=== PATIENT | female | born 1980 | race Caucasian/White ===

== ENCOUNTER 2022-04-23 09:36 | Outpatient (CLI) | payer BC, SELFPAY | END 2022-04-23 09:37 | disposition home or self-care (01) | PROVIDERS: PCP Physician Assistant Medical; Visit Provider Physician Assistant Medical | DX: R31.9 Hematuria, unspecified (principal); N39.0 Urinary tract infection, site not specified | CPT/HCPCS: 87086 ==

== ENCOUNTER 2022-08-19 08:29 | Outpatient (CLI) | payer BC, SELFPAY | END 2022-08-19 08:30 | disposition home or self-care (01) | LOC: FRMREF 08:31 | PROVIDERS: PCP Physician Assistant Medical; Visit Provider Physician Assistant Medical | DX: R79.89 Other specified abnormal findings of blood chemistry (principal); E78.5 Hyperlipidemia, unspecified; E78.01 Familial hypercholesterolemia; F41.9 Anxiety disorder, unspecified; K76.0 Fatty (change of) liver, not elsewhere classified; R53.83 Other fatigue | CPT/HCPCS: 80053; 80061; 82306; 84443 ==

== ENCOUNTER 2022-12-08 23:00 | Outpatient (REF) | payer BC, SELFPAY ==
[2022-12-08 23:31] LABS: Hemoglobin* 13.2 gm/dL (12.0-16.0)
== END 2022-12-08 23:01 | disposition home or self-care (01) ==
LOC: NPINS 23:00
PROVIDERS: PCP Physician Assistant Medical; Visit Provider Specialist
DX: Z13.0 Encounter for screening for diseases of the blood and blood-forming organs and certain disorders involving the immune mechanism (principal)
CPT/HCPCS: 85018

== ENCOUNTER 2023-03-15 14:19 | Outpatient (REF) | payer BC, SELFPAY ==
[2023-03-15 15:08] LABS: Albumin* 4.3 g/dL (3.3-5.0); Chloride* 104 mmol/L (96-114); Sodium* 141 mmol/L (135-149)
[2023-03-15 15:09] LABS: Potassium* 4.1 mmol/L (3.6-5.1)
[2023-03-15 15:11] LABS: Alanine Aminotransferase* 19 U/L (4-35); Alkaline Phosphatase* 63 U/L (40-150); Anion Gap 8 mEq/L (7-15); Aspartate Amino Transferase* 28 U/L (12-35); Bilirubin Total* 0.8 mg/dL (0.1-1.5); Blood Urea Nitrogen* 10 mg/dL (5-24); Carbon Dioxide* 29 mmol/L (20-32); Creatinine* 0.6 mg/dL (0.5-1.5); Estimated Glomerular Filt Rate 116 ml/min; Glucose* 92 mg/dL (60-115); Total Protein* 6.9 g/dL (6.0-8.3)
[2023-03-15 15:12] LABS: Calcium* 9.4 mg/dL (8.4-10.6)
[2023-03-15 15:23] LABS: Hemoglobin A1C* 5.1 % (0-5.6)
[2023-03-15 15:29] LABS: Vitamin D 25 Hydroxy* 42 ng/mL (30-80)
== END 2023-03-15 14:20 | disposition home or self-care (01) ==
LOC: NPINS 14:19
PROVIDERS: PCP Physician Assistant Medical
DX: E66.09 Other obesity due to excess calories (principal); Z68.34 Body mass index [BMI] 34.0-34.9, adult
CPT/HCPCS: 80053; 82306; 83036

== ENCOUNTER 2023-11-05 16:31 | Outpatient (CLI) | payer BC, SELFPAY ==
--- NOTE | 2023-11-05 16:45 | CRLHL7_ITS ---
For Patients: As a result of the Century Cures Act, medical imaging exams and procedure reports are released immediately into your electronic medical record. You may view this report before your referring provider. If you have questions, please contact your health care provider. INDICATION: Left lower quadrant abdominal pain. Left groin pain. TECHNIQUE: CT images of the abdomen and pelvis without intravenous contrast. COMPARISON: None. FINDINGS: No concerning opacities in the visualized lungs. No pleural effusion. The heart size is normal. The liver, gallbladder, spleen, and pancreas are unremarkable. The adrenal glands and kidneys are unremarkable. The stomach is moderately distended. No abnormally dilated loops of bowel. The appendix is unremarkable. No pathologically enlarged lymph nodes. The abdominal aorta is normal in caliber. No free fluid or free air. The urinary bladder is mildly distended. Status post hysterectomy. Very small fat containing umbilical hernia. Small foci of emphysema and mild stranding within the subcutaneous soft tissues of the lower left ventral abdominal wall, potentially related to iatrogenic sequela. Breast prostheses. Multilevel lumbar spondylosis. No aggressive osseous lesions. IMPRESSION: No acute abnormality in the abdomen or pelvis. Please note that all CT scans at this facility use dose modulation, iterative reconstruction, and/or weight-based dosing when appropriate to reduce radiation dose to as low as reasonably achievable. Dictated by King Tyler MD @ 11/06/2023 12:53:07 PM (Electronically Signed)
== END 2023-11-05 16:32 | disposition home or self-care (01) ==
LOC: CT 16:31
PROVIDERS: PCP Physician Assistant Medical; Visit Provider Physician Assistant Medical
DX: R10.32 Left lower quadrant pain (principal); M47.896 Other spondylosis, lumbar region
CPT/HCPCS: 74176

== ENCOUNTER 2024-04-05 13:50 | Outpatient (CLI) | payer BC, SELFPAY | END 2024-04-05 13:51 | disposition home or self-care (01) | LOC: RAD 13:51 | PROVIDERS: PCP Physician Assistant Medical; Visit Provider Physician Assistant Medical | DX: R00.2 Palpitations (principal) | CPT/HCPCS: 93306 ==

== ENCOUNTER 2024-11-11 19:42 | Inpatient (IN) | payer BC, SELFPAY ==
--- OUTSIDE RECORDS SUMMARY | 2022-02-04 11:27 | XMS_ITS | Continuity of Care Document ---
Author Organization [facility] Address [address] [address] [place] [address] Phone Care Team Providers Care Breakfast Bar Attendant Name Role Phone Bernie Lynch Unavailable Unavailabl e Allergies, Adverse Reactions, Alerts Substance Reaction Status Criticality PENICILLIN Rash Active No Information Medications Medication Instructions Dosage Effective Dates (start - stop) Status Comments Lexapro 20 mg tablet take 1 tablet by oral route every day 20 MG - Active ESTRADIOL (unknown strength) insert 30 Milliliter by vaginal route 3 times every week Not Available - Active WELLBUTRIN SR (unknown strength) take 1 tablet by oral route 2 times every day Not Available - Active Procedures Procedure Date Offic/outpt E&m Estab Mod-hi 2 Offic/outpt E&m New Mod Sever Routine Serum Collection Advance Directives Directive Yes / No Effective Date File Name No Information Encounters Encounter Description Practice Location Reason(s) For Visit Diagnoses Date Provider Providers Copied on Encounter [facility], [address] [address], [place], [place], [id number], [place] tel:[phone] [facility] No Information Onur Gibbs. [address] [facility], [facility] [address], [place], [place], [address], [place]. tel:[phone] Offic/outpt E&m Estab Mod-hi 2 [facility], [address] [address], [place], [place], [address], [place] tel:[phone] [facility] GI Symptoms or Concerns (chief complaint) SPICER (nonalcoholic steatohepatit is)Insulin resistance Shani Arias. [address] [facility], [facility] [address], [place], [place], [address], [place]. tel:[phone] Referring Provider: Referral Self, USE FOR SELF REFERRALS. [facility], [address] [address], [place], [place], [address], [place] tel:[phone] [facility] Elevated liver function tests Trenary BALTAZAR Gibbs. [address] [facility], [address], [place], [place], [address], [place]. tel:[phone] [facility], [address] [address], [place], [place], [address], [place] tel:[phone] [facility] Elevated liver function tests Onur BALTAZAR Gibbs. [address] [facility], [facility] [address], [place], [place], [address], [place]. tel:[phone] Offic/outpt E&m [facility], [address] [address], [place], [place], [address], [place] tel:[phone] [facility] GI Symptoms or Concerns (chief complaint) Elevated liver function tests Onur BALTAZAR Gibbs. [address] [facility], [facility] [address], [place], [place], [address], [place]. tel:[phone] Referring Provider: Referral Self, USE FOR SELF REFERRALS. [facility], [address] [address], [place], [place], [address], [place] tel:[phone] [facility] No Information Chivo Strauss. [address] [facility], [facility] [address], [place], [place], [address], [place]. tel:[phone] Family History Family Member Type Diagnosis Age At Onset Father Problem Alive and well Son Problem Alive and well Daughter Problem Alive and well Mother Problem Alive and well Mother Problem (finding) Thyroid disorder Immunizations Vaccine Date Status Comments tetanus toxoid, reduced diphtheria toxoid, and acellular pertussis vaccine, adsorbed administered Note: [facility] b i-directional interface ; Source: Other Registry Influenza, seasonal, injecta ble, preservative free administered Note: [facility] bi-direct ional interface ; Source: Other Registry Influenza, seasonal, injecta ble, preservative free administered Note: [facility] bi-direct ional interface ; Source: Other Registry Influenza, seasonal, injecta ble, preservative free administered Note: [facility] bi-direct ional interface ; Source: Other Registry Influenza, seasonal, injecta ble, preservative free administered Note: [facility] bi-direct ional interface ; Source: Other Registry Influenza, seasonal, injecta ble, preservative free administered Note: [facility] bi-direct ional interface ; Source: Other Registry Novel [id number], all formulations administered Note: [facility] bi-direct ional interface ; Source: Other Registry Influenza, seasonal, injecta ble, preservative free administered Note: [facility] bi-direct ional interface ; Source: Other Registry Influenza, seasonal, injectable administe red Note: [facility] bi- directional interface ; Source: Other Registry Influenza, seasonal, injectable administe red Note: [facility] bi- directional interface ; Source: Other Registry Influenza, seasonal, injectable administe red Note: [facility] bi- directional interface ; Source: Other Registry Influenza, seasonal, injectable administe red Note: [facility] bi- directional interface ; Source: Other Registry Engerix-B administered Note: [facility] bi-d irectional interface ; Source: Other Registry Payers Payer name Insurance type Covered constitution party ID Authoriza tion(s) No Information Social History Type Description Quantity Date Captured Comments Sex Female Smoking Status No Information Chief Complaint And Reason For Visit No Information Reason For Referral Reason For Referral No Information Plan Of Treatment Date Type Action Status Referral Ordered: referred to Endocrinology, Diabetes and Metabolism ordered Referral Ordered: referred to [facility] for weight loss ordered History Of Present Illness Encounter Date Complaint History Of Prese nt Illness GI Symptoms or Concerns Geri hall is a 41-year-old patient presents today for follow up of biopsy proven SPICER. Patient was recently seen by Bernie Mohr. Please refer to Mrs. Mohr's recent office note for full details. As you know, patient's medical history is significant for obesity, hyperlipidemia and PCOS with insulin resistance. Patient has chronically abnormal transaminase at least since 2013 attributed to NAFLD. Labs drawn 07/28/21 with revealed Total bilirubin 0.9, AST 185, ALT 257, alkaline phosphatase 80, albumin 5.2 and cholesterol 279. Platelet count was normal at 258. Patient recently underwent percutaneous liver biopsy. Path revealed SPICER with SHADI activity score 5 out of 8, and stage 2 fibrosis. She denies any family history of liver disease or cancer. She does not drink and has never had a history of heavy alcohol use. Patient is asymptomatic from liver standpoints. Denies any symptoms of jaundice, melena, hematochezia, hematemesis or ascites. She has not noticed any recent weight gain but reports she is having difficulty losing weight. She is currently following a ketogenic diet and reports that she has lost about 10 pounds on this. 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 GI Symptoms or Concerns Geri hall is a 41-year-old new patient seen today for concern of elevated liver testing. Patient is seen today as a self-referral. Past medical history is significant for obesity, nonalcoholic fatty liver disease, hyperlipidemia and PCOS with insulin resistance. She is accompanied today by her . Prior to her visit, patient had labs drawn 07/28/21 with [facility] which revealed elevated liver function tests. Total bilirubin 0.9, AST 185, ALT 257, alkaline phosphatase 80, albumin 5.2 and cholesterol 279. Platelet count was normal at 258. Patient reports she was initially told she had liver disease in 2004 when a lesion was found in her liver. She is not sure why she ended up having liver imaging done in the 1st place. She does have a diagnosis of non alcoholic fatty liver disease and saw [facility] in 2013 for assessment. She reports she was told she has an stage 6 cirrhosis. She denies any family history of liver disease or cancer. She does not drink and has never had a history of heavy alcohol use. No history of recreational drugs including IV or intranasal drugs. Patient does use ibuprofen a couple days per week reports when her headaches are bad she will have 800 milligrams of ibuprofen with 1 Excedrin. Denies any symptoms of jaundice, melena, hematochezia, hematemesis or ascites. She has not noticed any recent weight gain but reports she is having difficulty losing weight. She is currently following a ketogenic diet and patient's reports that she has lost about 10 pounds on this. 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 Denies any tobacco use. Functional Status Date Functional Assessmen t No Information Instructions Date Instruction Additional Infor mation No Information Assessments Type Assessment Date No Information Patient Care Teams Name Effective Dates (start - stop) Status Members No Information
--- OUTSIDE RECORDS SUMMARY | 2022-02-04 11:27 | XMS_ITS | Continuity of Care Document ---
Author Organization [facility] Address [address] [address] [place] [address] Phone Care Team Providers Care Direct Marketing Executive Name Role Phone Bernie Lynch Unavailable Unavailabl [...] Diagnoses Date Provider Providers Copied on Encounter [facility], [address] [address], [place], [place], [id number], [place] tel:[phone] [facility] No Information Onur Gibbs. [address] [facility], [place], [place], [address], [place]. tel:[phone] Offic/outpt E&m Estab Mod-hi 2 [facility], [address] [address], [place], [place], [address], [place] tel:[phone] [facility] GI Symptoms or Concerns (chief complaint) SPICER (nonalcoholic steatohepatit is)Insulin resistance Shani Arias. [address], [place], [place], [address], [place]. tel:[phone] Referring Provider: Referral Self, USE FOR SELF REFERRALS. [facility], [address] [address], [place], [place], [address], [place] tel:[phone] [facility] Elevated liver function tests [place] BALTAZAR Gibbs. [address], [address], [place], [place], [address], [place]. tel:[phone] [facility], [address] [address], [place], [place], [address], [place] tel:[phone] [facility] Elevated liver function tests Onur BALTAZAR Gibbs. [address], [place], [place], [address], [place]. tel:[phone] Offic/outpt E&m [facility], [address] [address], [place], [place], [address], [place] tel:[phone] [facility] GI Symptoms or Concerns (chief complaint) Elevated liver function tests Onur BALTAZAR Gibbs. [address], [place], [place], [address], [place]. tel:[phone] Referring Provider: Referral Self, USE FOR SELF REFERRALS. [facility], [address] [address], [place], [place], [address], [place] tel:[phone] [facility] No Information Chivo Strauss. [address], [place], [place], [address], [place]. tel:[phone] Family History Family Member Type Diagnosis Age [...] ional interface ; Source: Other Registry Novel [id number], all formulations administered Note: [facility] bi-direct ional [...] Registry Payers Payer name Insurance type Covered republican ID Authoriza tion(s) No Information Social History Type Description Quantity Date Captured Comments Sex Female Smoking Status No Information Chief Complaint And Reason For Visit No Information Reason For Referral Reason For Referral No Information Plan Of Treatment Date Type Action Status Referral Ordered: referred to Endocrinology, Diabetes and Metabolism ordered Referral Ordered: referred to [facility] for weight loss ordered History Of Present [...] visit, patient had labs drawn 07/28/[address] [facility] which revealed elevated liver function tests. Total [...] non alcoholic fatty liver disease and saw [facility] in 2013 for assessment. 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 Denies any tobacco use. Functional Status Date Functional Assessmen t No Information Instructions Date Instruction Additional Infor mation No Information Assessments Type Assessment Date No Information Patient Care Teams Name Effective Dates (start - stop) Status Members No Information
--- OUTSIDE RECORDS SUMMARY | 2024-11-11 19:45 | XMS_ITS | Clinical Summary ---
Author Organization [facility] Address [address] [address] Phone Care Team Providers Care Test Designer Name Role Phone Choice, No Pcp-Patient Primary Care Provider Chrissie vailable Allergies Active Allergy Reactions Criticality Noted Date Comments Penicillin G RASH Medium 08/08/2021 Medications escitalopram (LEXAPRO) 20 MG tablet Take 20 mg by mouth every 24 hours. 7 Active estradiol (Estrace) 1 MG tablet 4 Active semaglutide-weig ht management (Wegovy) 1.7 MG/0.75ML Solution Auto-injectorInd ications:Class 1 obesity due to excess calories with serious comorbidity and body mass index (BMI) of 34.0 to 34.9 in adult Inject 1.7 mg under the skin one time a week. After removal of the pen cap, the needle will be hidden inside the needle cover. To begin injection, press the needle cover firmly against the skin. Once injected, continue to press the device against the skin until the yellow bar has stopped moving. Then, remove the needle from the skin. 3 mL 1 4 Active semaglutide-weig ht management (Wegovy) 2.4 MG/0.75ML Solution Auto-injectorInd ications:Class 1 obesity due to excess calories with serious comorbidity and body mass index (BMI) of 34.0 to 34.9 in adult Inject 2.4 mg under the skin one time a week. After removal of the pen cap, the needle will be hidden inside the needle cover. To begin injection, press the needle cover firmly against the skin. Once injected, continue to press the device against the skin until the yellow bar has stopped moving. Then, remove the needle from the skin. 9 mL 1 Active Active Problems Problem Noted Date Diagnosed Date Low vitamin D level 06/25/2023 Elevated LFTs 06/25/2023 Elevated triglycerides with high cholesterol Prediabetes 06/25/2023 MARQUEZ (obstructive sleep apnea) 05/09/2022 Assessment & Plan (03/17/2023 11:23 AM PRODUCTION LINE OPERATOR): Geri was diagnosed with mild sleep apnea, however C-pap machine did not work for her. She is now sleeping well and is no longer snoring. Denies concerns. Assessment & Plan (07/01/2022 9:30 AM PRODUCTION LINE OPERATOR): IMPRESSION: MARQUEZ of mild severity based on home sleep apnea test done on March 23, 2022 with an AHI of 6. Geri was seen by me on May 08 for her initial visit; she was not able to receive CPAP due to shortage of CPAP machines until June 06. However, as detailed above she has not been able to tolerate CPAP therapy despite her best efforts. RECOMMENDATIONS AND PLAN: I reviewed with Geri the limited data from her CPAP download. I also discussed with her her treatment options as was outlined in my initial office visit note from May. At this point she would like to see a dentist to see if she would be a good candidate for a mandibular advancement device. Accordingly, she will be referred to see Dr. Ana HOFFMANN for the same in [place]. She will also be returning her CPAP machine. Assessment & Plan (05/09/2022 11:01 AM PRODUCTION LINE OPERATOR): IMPRESSION: MARQUEZ of mild severity based on home sleep apnea test done on March 23, 2022 with an AHI of 6. RECOMMENDATIONS AND PLAN: I reviewed with the patient today the various mechanisms that can lead to sleep disordered breathing. I reviewed with the patient as well the results of the home sleep apnea test since this was the patient's 1st visit with me. I reviewed with the patient his treatment options which includes weight loss; UPPP surgery; dental appliance; CPAP therapy. Patient was also advised not to drive if sleepy as this will place the patient and others @ increased risk for being involved in motor vehicle accidents. At this point Geri would like to try CPAP. Accordingly, she will be set up w/ an auto CPAP machine at a pressure range of 5-20 w/ a CPAP mask of her choice. She will be seen in f/u in 4-6 wks to review the results of the CPAP download/compliance data as well as review her hx to see if there has been any improvement in her sx's w/ tx. Insulin resistance 01/02/2022 Assessment & Plan (01/02/2022 12:09 PM CDT): Continue diet, exercise, weight loss Nonalcoholic steatohepatitis 01/02/2022 Assessment & Plan (03/17/2023 11:23 AM PRODUCTION LINE OPERATOR): LFTs are now normal Continue weight loss Assessment & Plan (12/14/2022 2:15 PM CDT): We will recheck CMP Assessment & Plan (01/02/2022 12:09 PM CDT): Continue follow-up with GI Class 1 obesity due to exces s calories with serious comorbidity and body mass index (BMI) of 34.0 to 34.9 in adult 01/02/2022 Assessment & Plan (03/17/2023 11:21 AM PRODUCTION LINE OPERATOR): Weight Starting weight : 187 pounds in January 2022 Current weight : Weight: 62.7 kg (138 lb 3.2 oz) Weight lost : 49 pounds Goal weight : 125-130 pounds. Today, we will : Recommended tracking calories (> 1000 calories per day) Restart protein shake. Recommended 60-80 grams of protein. Recommended 30 minutes of cardiovascular 3 times per week, 2 days per week of strength training Reduce WeGovy to 1.7 mg / week in hopes to reduce dose as you are at weight loss goal Recheck lipid panel in August 2023 Follow-up with JOSE Burgess testing Follow-up in 3 months Assessment & Plan (12/14/2022 2:13 PM CDT): Weight Starting weight : 187 pounds in January 2022 Current weight : Weight: 65.8 kg (145 lb) Weight lost : 42 pounds Goal weight : 125-130 pounds. Today, we will : 1.) Continue counting calories (1500 calories per day) 2.) Continue protein shake. 60-80 grams of protein. 3.) Increase fluids. 4.) Continue walking with dogs and restart PureBarre classes. 5.) Check labs in 3 months and follow-up at that time 6.) Follow-up every 3 months Assessment & Plan (05/06/2022 4:01 PM PRODUCTION LINE OPERATOR): Relatively unchanged, not at goal weight 125-130 lbs. Geri's weight is down ~4 lbs since starting Saxenda four months ago, which represent 2% of baseline bodyweight loss. She does not feel it is helpful for appetite suppression. In lieu of treatment failure, we will plan to transition to Wegovy (pending approval from insurance). Since on max dose of liraglutide, we will start at a slightly higher dose of Wegovy at 0.5 mg/week. F/u 1 month after starting Wegovy. Assessment & Plan (02/19/2022 9:59 AM CDT): Improved, though not at goal weight 125-130 lbs. Geri reports 9 lbs of weight loss since starting Saxenda ~1 month ago. PharmD congratulated her on her success, noting 1-2 lbs of weight loss is on track with what we hope to see with [facility] medications. She hoped she would lose more weight by now and would like to switch to Mounjaro. Discussed that this is only approved for T2D and with Medicaid insurance, would likely run into insurance or pharmacy issues. Once available for order again, transition from Saxenda 3 mg to Wegovy 0.5 mg (if insurance will allow us to start at a slightly higher dose) for more potent effect and greater weight loss. If Mounjaro gets a weight loss indication in the future, we will plan to transition to this medication. PharmD to contact pt once Wegovy is available again to discuss transition plan. Assessment & Plan (02/04/2022 9:44 AM CDT): Weight Starting weight : 187 pounds in January 2022 Current weight : Weight: 83.5 kg (184 lb) Weight lost : 3 pounds Goal weight : 125-130 pounds. After discussion, we will plan to : 1.) Continue Saxenda 2.) Refer to sleep center 3.) Start Keto 4.) Follow-up in 3 months Assessment & Plan (01/07/2022 3:32 PM CDT): Stable, though not at goal weight 125-130 lbs. Current weight 187 pounds, BMI 34.33 kg/m^2. Weight loss medications are indicated as an adjunct to reduced-calorie diet & increased physical activity for chronic weight mgmt in adults w/ initial BMI of 30+ OR 27+ w/ weight-related comorbidity (ie: HTN, DM2, HLD). Geri expressed most interest in Wegovy or Saxenda. Avoid phentermine d/t to potential for worsening anxiety. We focused discussion on GLP1ra d/t desire to reduce portion size, reduce cravings, reverse prediabetes, improve fatty liver. Rebelgovlars is on backorder. We will pursue Saxenda. She does not have a hx of medullary thyroid cancer, multiple endocrine neoplasia syndrome type 2, pancreatitis. PharmD to send rx to pharmacy to trigger prior authorization (we do not have her insurance card scanned into chart to proactively complete), then follow-up with Geri to discuss coverage. If covered, f/u 1 month after starting the medication. Assessment & Plan (01/02/2022 12:08 PM CDT): Weight Starting weight : 187 pounds in January 2022 Current weight : Weight: 85.1 kg (187 lb 11.2 oz) Goal weight : 125-130 pounds. After discussion, we will plan to : 1.) Check labs : A1c, BMP, CBC, Iron, Ferritin, TFTs 2.) Follow-up with PharmD to review weight loss meds 3.) Start IndisysPal 4.) Start [employer] patti Abnormal blood chemistry level 08/08/2021 Resolved Problems Problem Noted Date Diagnosed Date Resolved Date Snoring 02/04/2022 05/09/2022 Assessment & Plan (02/04/2022 9:43 AM CDT): Refer to sleep center Surgical History Surgery Date Site/Laterality Comments TOTAL ABDOM HYSTERECTOMY SECTION BREAST ENHANCEMENT SURGERY REMOVE TONSILS/ADENOIDS,12+ Y/O Medical History Medical History Date Comments Generalized anxiety disorder PCOS (polycystic ovarian syndrome) Social History Tobacco Use Types Packs/Day Years Used Date Smoking Tobacco: Former Cigarettes Passive Smoke Exposure: Never Smokeless Tobacco: Never Tobacco Cessation:Counseling Given: Not Answered PHQ-2 Answer Date Recorded PHQ-2 Total 0 01/02/2022 Comments No Sex and Gender Information Value Date Recorded Sex Assigned at Not on file Legal Sex Female 11:19 AM CDT Gender Identity Not on file Sexual Orientation Not on file Obstetrics History Last Filed Vital Signs Vital Sign Reading Time Taken Comments Blood Pressure 108/62 03/17/2023 10:41 AM PRODUCTION LINE OPERATOR Pulse 82 01/02/2022 11:34 AM CDT Temperature - - Respiratory Rate - - Oxygen Saturation - - Inhaled Oxygen Concentration - - Weight 59.9 kg (132 lb) 06/25/2023 10:30 AM PRODUCTION LINE OPERATOR Height 157.5 cm (5' 2) 06/25/2023 10:30 AM PRODUCTION LINE OPERATOR Body Mass Index 24.14 06/25/2023 10:30 AM PRODUCTION LINE OPERATOR Plan of Treatment Health Maintenance Due Date Last Done Comments Cervical Cancer Screening 1981 Last pap w/ HPV Testing 1981 Last pap w/o HPV Testing 1981 MAMMO,SCREEN 1981 Hepatitis B Vaccine (Standin g Order) (1 of 3 - 19+ 3-dose series) 2000 PERTUSSIS (Standing Order) 2000 TETANUS (Standing Order) 2000 HPV Vaccine (Standing Order) Aged Out No longer eligible based on patient's age to complete this topic Pneumococcal/PCV20 Vaccine: Pediatrics (2-5 yrs) and At-Risk Patients (6-49 yrs) (Standing Order) Aged Out No longer eligible b ased on patient's age to complete this topic Insurance [facility] [place] Care Teams Test Designer Relationship Specialty Start Date End Date Choice, No Pcp-Patient PCP - General 06/25/23
--- OUTSIDE RECORDS SUMMARY | 2024-11-11 19:45 | XMS_ITS | Encounter Summary ---
Author Organization [facility] Address [address] [address] Phone Care Team Providers Care Spot Remover Name Role Phone Elsewhere, Pcp Primary Care Provider Unavailabl e Choice, No Pcp-Patient Primary Care Provider Chrissie vailable Reason for Visit * Reason Comments Refill Request Encounter Details Date Type Department Care Team ([facility] st Contact Info) Description 06/29/2022 Refill [facility] [address] [place] [address] [address], [place] [phone] Brittany Hoffman, CHEMICAL SUPERVISOR, WEIGHER OPERATOR [address] [facility] [address] [place] [address] Refill Request Social History Tobacco Use Types Packs/Day Years Used Date Smoking Tobacco: Former Smokeless Tobacco: Never PHQ-2 Answer Date Recorded PHQ-2 Total 0 01/02/2022 Comments No Sex and Gender Information Value Date Recorded Sex Assigned at Not on file Legal Sex Female 11:19 AM CDT Gender Identity Not on file Sexual Orientation Not on file documented as of this encounter Plan of Treatment Not on file documented as of this encounter Visit Diagnoses Diagnosis Class 1 obesity due to excess calories with serious comorbidity and body mass index (BMI) of 34.0 to 34.9 in adult documented in this encounter Care Teams Spot Remover Relationship Specialty Start Date End Date Elsewhere, Pcp PCP - General 12/04/22 03/16/23 Choice, No Pcp-Patient PCP - General 06/25/23 documented as of this encounter
--- OUTSIDE RECORDS SUMMARY | 2024-11-11 19:45 | XMS_ITS | Encounter Summary ---
Author Organization [facility] Address [address] [address] Phone Care Team Providers Care Cloud Software Engineer Name Role Phone Choice, No Pcp-Patient Primary Care Provider Chrissie vailable Reason for Visit * Reason Comments Refill Request Encounter Details Date Type Department Care Team ([facility] st Contact Info) Description 05/23/2023 Refill [facility] [address] [place] [address] [address], [place] [phone] Brittany Hoffman APRN, TRANSITIONS MANAGER [address] [facility] [address] [place], [place] [address] Refill Request Social History Tobacco Use Types Packs/Day Years Used Date Smoking Tobacco: Former Cigarettes Passive Smoke Exposure: Never Smokeless Tobacco: Never PHQ-2 Answer Date Recorded [...] adult documented in this encounter Care Teams Cloud Software Engineer Relationship Specialty Start Date End Date Choice, No Pcp-Patient PCP - General 06/25/23 documented as of this encounter
--- OUTSIDE RECORDS SUMMARY | 2024-11-11 19:45 | XMS_ITS | Encounter Summary ---
Author Organization [facility] Address [address] [address] Phone Care Team Providers Care Biomedical Engineering Technician Name Role Phone Elsewhere, Pcp Primary Care Provider Unavailabl e Choice, No Pcp-Patient Primary Care Provider Chrissie vailable Reason for Visit * Reason Comments Refill Request Encounter Details Date Type Department Care Team ([facility] st Contact Info) Description 06/04/2022 Refill [facility] [address] [place] [address] [place], [place] [phone] Brittany Hoffman, KNOT BUMPER, ORACLE ASCP CONSULTANT [address] [facility] [address] [place] [address] Refill Request Social History Tobacco [...] adult documented in this encounter Care Teams Biomedical Engineering Technician Relationship Specialty Start Date End Date Elsewhere, Pcp PCP - General 12/04/22 03/16/23 Choice, No Pcp-Patient PCP - General 06/25/23 documented as of this encounter
--- OUTSIDE RECORDS SUMMARY | 2024-11-11 19:45 | XMS_ITS | Encounter Summary ---
Author Organization [facility] Address [address] [address] Phone Care Team Providers Care Licensed [place] Real Estate Appraiser Name Role Phone Elsewhere, Pcp Primary Care Provider Unavailabl e Choice, No Pcp-Patient Primary Care Provider Chrissie vailable Reason for Visit * Reason Comments Refill Request Encounter Details Date Type Department Care Team ([facility] st Contact Info) Description 06/25/2022 Refill [facility] [address] [place] [address] [address], [place] [phone] Brittany Hoffman, CORPORATE DEVELOPMENT OFFICER, PRISM INSPECTOR [address] [facility] [address] [place] [address] Refill Request Social History Tobacco [...] adult documented in this encounter Care Teams Licensed [place] Real Estate Appraiser Relationship Specialty Start Date End Date Elsewhere, Pcp PCP - General 12/04/22 03/16/23 Choice, No Pcp-Patient PCP - General 06/25/23 documented as of this encounter
--- OUTSIDE RECORDS SUMMARY | 2024-11-11 19:45 | XMS_ITS | Encounter Summary ---
Author Organization [facility] Address [address] [address] Phone Care Team Providers Care Ceramic Restorer Name Role Phone Elsewhere, Pcp Primary Care Provider Unavailabl e Choice, No Pcp-Patient Primary Care Provider Chrissie vailable Reason for Visit * Reason Comments Refill Request Encounter Details Date Type Department Care Team ([facility] st Contact Info) Description 10/03/2022 Refill [facility] [address] [phone] Brittany Hoffman, TYPE CASTER, PIN MACHINE OPERATOR [address] [address] Refill Request Social History Tobacco Use Types Packs/Day Years Used Date Smoking Tobacco: Former Cigarettes Smokeless Tobacco: Never PHQ-2 Answer Date Recorded PHQ-2 Total 0 01/02/2022 Comments No Sex and Gender Information Value Date Recorded Sex Assigned at Not on file Legal Sex Female 11:19 AM CDT Gender Identity Not on file Sexual Orientation Not on file documented as of this encounter Ordered Prescriptions Prescription Sig Dispense Quantity Refills Last Filled Start Date End Date semaglutide-weight management (Wegovy) 2.4 MG/0.75ML Solution Auto-injectorIndic ations:Class 1 obesity due to excess calories with serious comorbidity and body mass index (BMI) of 34.0 to 34.9 in adult Inject 0.75 mL under the skin one time a week. NEEDS a follow up appointment [facility] [phone] 3 mL 10/05/2022 documented in this encounter Plan of Treatment Not on file documented as of this encounter Visit Diagnoses Diagnosis Class 1 obesity due to excess calories with serious comorbidity and body mass index (BMI) of 34.0 to 34.9 in adult documented in this encounter Discontinued Medications Medication Sig Discontinue Reason Start Date End Da te Semaglutide-Weight Management (Wegovy) 2.4 MG/0.75ML Solution Auto-injectorIndications: Class 1 obesity due to excess calories with serious comorbidity and body mass index (BMI) of 34.0 to 34.9 in adult Inject 2.4 mg under the skin one time a week. 07/14/2022 10/05/2022 documented as of this encounter Care Teams Ceramic Restorer Relationship Specialty Start Date End Date Elsewhere, Pcp PCP - General 12/04/22 03/16/23 Choice, No Pcp-Patient PCP - General 06/25/23 documented as of this encounter
--- OUTSIDE RECORDS SUMMARY | 2024-11-11 19:45 | XMS_ITS | Encounter Summary ---
Author Organization [facility] Address [address] [address] Phone Care Team Providers Care Automobile Insurance Claim Examiner Name Role Phone Elsewhere, Pcp Primary Care Provider Unavailabl e Choice, No Pcp-Patient Primary Care Provider Chrissie vailable Reason for Visit * Reason Comments Refill Request Encounter Details Date Type Department Care Team ([facility] st Contact Info) Description 11/09/2022 Refill [facility] [address] [phone] Brittany Hoffman, SAP SPECIALIST, SENIOR DESIGN ENGINEER [address] [address] Refill Request Social History Tobacco Use Types [...] adult documented in this encounter Care Teams Automobile Insurance Claim Examiner Relationship Specialty Start Date End Date Elsewhere, Pcp PCP - General 12/04/22 03/16/23 Choice, No Pcp-Patient PCP - General 06/25/23 documented as of this encounter
--- OUTSIDE RECORDS SUMMARY | 2024-11-11 19:45 | XMS_ITS | Clinical Summary ---
Author Organization [facility] Address [address] [place] [address]. [place] [address] Care Team Providers Care Transport Conductor Name Role Phone Vicenteaugust Primary Care Provider [phone] Allergies Active Allergy Reactions Criticality Noted Date Comments Penicillins Rash Low 09/19/2003 Hydrocodone-Acetaminophen Nausea and Vomiting,Itching 04/05/2014 Medications LORazepam (ATIVAN PO) Take 1 mg by mouth every 6 hours as needed for anxiety Active estradiol (ESTRACE) 1 MG tabletIndications :S/P hysterectomy with oophorectomy Take 1 tablet (1 mg) by mouth daily 90 tablet 1 4 Active ibuprofen (ADVIL,MOTRIN) 600 MG tabletIndications :S/P hysterectomy with oophorectomy Take 1 tablet (600 mg) by mouth every 6 hours as needed for moderate pain 60 tablet 0 4 Active Escitalopram Oxalate (LEXAPRO PO) Active sulfamethoxazole- trimethoprim (BACTRIM DS/SEPTRA DS) 800-160 MG per tabletIndications :Ingrowing nail Take 1 tablet by mouth 2 times daily 20 tablet 0 6 Active silver sulfADIAZINE (SILVADENE) 1 % external creamIndications: Onychocryptosis Apply to right great toe procedure site twice daily with dressings until healed 50 g 2 Active Active Problems Problem Noted Date Diagnosed Date Post-operative state 04/10/2014 CARDIOVASCULAR SCREENING; LDL GOAL LESS THAN 160 06/12/2009 Anxiety state 09/30/2005 Overview (01/31/2015): Problem list name updated by automated process. Provider to review Immunizations Immunization Administration Dates Next Due Influenza (IIV3) PF 03/09/2005,03/05/2004 TD,PF 7+ (Tenivac) 01/29/1998 Family History Medical History Relation Comments Blood Disease Father HIV Thyroid Disease Maternal Grandmother Neurologic Disorder Mother Relation Status Comments Daughter 1 Alive Shailyn Daughter 2 Alive Mecena Father Alive Maternal Grandfather Alive Maternal Grandmother Alive Mother Alive Paternal Grandfather Alive Paternal Grandmother Alive Social History Tobacco Use Types Packs/Day Years Used Date Smoking Tobacco: Former Cigarettes 0.5 10 Smokeless Tobacco: Never Tobacco Cessation:Counseling Given: Yes Comments:only socially Alcohol Use Standard Drinks/Week Comments No 0 (1 standard drink = 0.6 oz pur e alcohol) Adolescent Education Answer Date Record ed Getting School Help Needed Not on file 01/24 Comments No Sex and Gender Information Value Date Recorded Sex Assigned at Not on file Legal Sex Female 3:22 AM FITNESS AND WELLNESS MANAGER Gender Identity Not on file Sexual Orientation Not on file Last Filed Vital Signs Vital Sign Reading Time Taken Comments Blood Pressure 112/76 08/20/2021 1:00 PM CDT Pulse 78 08/20/2021 1:00 PM CDT Temperature 37.1 C (98.8 F) 04/11/2014 8:00 AM FITNESS AND WELLNESS MANAGER Respiratory Rate 20 08/20/2021 1:00 PM CDT Oxygen Saturation 98% 08/20/2021 1:00 PM CDT Inhaled Oxygen Concentration - - Weight 86.5 kg (190 lb 12.8 oz) 06/12/2021 9:32 AM FITNESS AND WELLNESS MANAGER Height 157.5 cm (5' 2) 06/12/2021 9:32 AM FITNESS AND WELLNESS MANAGER Body Mass Index 34.9 06/12/2021 9:32 AM FITNESS AND WELLNESS MANAGER Plan of Treatment Not on file Advance Directives For more information, please contact: [phone] * Full Code (Latest Code Status on File) Date Activated Date Inactivated Comments 04/10/2014 2:57 PM 04/11/2014 10:58 AM Care Teams Transport Conductor Relationship Specialty Start Date End Date August PCP - General Physician Biazzi Nitrator Operator 04/05/14
[2024-11-11 19:50] VITALS: BP 109/77; PULSE 93; RESP 16; TEMP 36.7; O2SAT 100; BMI 22.5
--- NOTE | 2024-11-11 20:07 | ED_ITS ---
HPI - Animal Bite General Time Seen by Provider: 20:07 Date Seen: 11/11/24 Chief Complaint: Animal Bite Stated Complaint: Multiple dog bites, Body Aches Time Seen by Provider: 11/11/24 20:07 Source: patient and RN notes reviewed Mode of arrival: ambulatory Limitations: no limitations History of Present Illness HPI narrative: This 44yo female is ambulatory into the ED with concern of hand swelling and pain after a dog bite. One of her dogs bit her this am, states that she startled the dog. It is a small breed. She got bit in the right hand/index finger. Her ankles were bitten as well but no skin broken per patient. Her hand is swelling, becoming more painful, no fevers or chills at this time but stated to nursing staff that she is feeling generalized achiness. This dog is hers, is up to date on rabies vaccine. Her last tetanus was in 2013 and she is in agreement to update this tonight. She is allergic to penicillin. Bite happened about 10 am today and the hand and fingers have progressively worsened. complaint: animal bite Related Data Previous Rx's ?Medication ?Instructions ?Recorded semaglutide (weight loss) 2.4 2.4 mg (0.75 mL) subcut QWEEK #3 mL 03/21/24 mg/0.75 mL subcutaneous pen injector (Wegovy) methylprednisolone 4 mg tablets in See Rx Instructions PO PER PKG DIR 03/28/24 a dose pack (Medrol (Jeff)) #21 ea estradiol 1 mg tablet 1 mg PO DAILY #90 tabs 11/02 escitalopram oxalate 20 mg tablet 20 mg PO QDAY #90 ta bs 11/10/24 Allergies Allergy/AdvReac Type Severity Reaction Status Date / Time hydrocodone Allergy Severe Hives Verified 03/28/24 13:33 Penicillins Allergy Verified 03/28/24 13:33 Review of Systems Narrative: As per HPI. [facility] Medical History Liver mass (12/16/12) ?R16.0 - Hepatomegaly, not elsewhere classified (ICD-10) Ingrown nail of great toe of right foot ?L60.0 - Ingrowing nail (ICD-10) Gestational diabetes mellitus (GDM) (12/15/12) ?O24.419 - Gestational diabetes mellitus in , unspecified control (ICD-10) Anemia following surgery ?D64.9 - Anemia, unspecified (ICD-10) Pharyngitis ?J02.9 - Acute pharyngitis, unspecified (ICD-10) Urinary tract infection ?N39.0 - Urinary tract infection, site not specified (ICD-10) Surgical History History of surgery ?Z98.890 - Other specified postprocedural states (ICD-10) History of section (05/13/11) ?Z98.891 - History of uterine scar from previous surgery (ICD-10) History of breast augmentation ?Z98.82 - Breast implant status (ICD-10) History of total abdominal hysterectomy and bilateral salpingo-oophorectomy ?Z90.710 - Acquired absence of both cervix and uterus (ICD-10) ?Z90.722 - Acquired absence of ovaries, bilateral (ICD-10) ?Z90.79 - Acquired absence of other genital organ(s) (ICD-10) Family History Mother Hypothyroidism Maternal Grandmother Hypothyroidism Social History Narrative: Non-smoker Does not drink alcohol Does not use illicit drugs Smoking Status: Never smoker Non-prescribed substance use: denies use Exam Const: Vital Signs, click to edit/add: Vital Signs - 24 hr 11/11/24 19:50 11/11/24 21:00 Temperature 98.1 F Pulse Rate [Pulse Oximeter] 93 86 Respiratory Rate 16 16 Blood Pressure [Le ft Upper Arm] 109/77 117/81 Pulse Oximetry 100 98 Oxygen Delivery Me thod Room Air Room Air This patient is alert, interactive, no apparent distress. Face atraumatic. Lungs are clear, no wheezing, no tachypnea, no accessory muscle use. CV regular rate and rhythm, no murmur. Her right hand has swelling in the index and third finger with the index being the most swollen. The swelling extends into the hand on both the dorsal and volar surfaces. I see bite lee on the index finger on the extensor surface proximally and multiple bites at the base of the fingers in the palm. I can assist with full extension, she can flex these two fingers but the amount of swelling in the second finger does limit how much she can flex; I do not see any concerning evidence of septic tenosynovitis at this point but we have specifically reviewed this as a complication. There is some milky to serous fluid leaking out of one the bite lee on the palm at the base of the second finger. There is some minimal pinkish change in portions of this hand but do not really feel significant warmth. Documenting provider has reviewed patient's vital signs: yes Course Course ED Course: Nursing staff did have patient contact police. I did review my concerns for infection from this dog bite. This has progressed significantly since the bite incident. I do believe that we should initiate IV antibiotic, she will also need her tetanus updated. Dog has rabies vaccines per her report. Will also get baseline labs. She has penicillin allergy. Did consult EMRA from 1 of my colleagues. Recommendations are for Flagyl with either doxycycline, Bactrim or Levaquin. I do think she needs IV antibiotics. Will start with IV Flagyl and doxycycline. She wished to avoid Levaquin after we does cussed side effects that were common from some of these antibiotics. She does state that she gets yeast infections after antibiotics. She is to talk to the hospitalist, do believe that she should be at least admitted for initial IV antibiotics to make sure that this is not worsening or turning into a septic tenosynovitis. We did discuss in that situation and does become surgical. She does agree with hospitalization to ensure that this is being treated vigorously and adequately. Consultations Consultation #1: Did speak with the hospitalist Dr. Barakat. Reviewed case. He will come to see the patient. Plan will be to hospitalize and treat with initial IV antibiotics given the location and the increasing severity within the day. Patient is in agreement with the plan. Time: 20:47 Vital Signs Vital signs: Initial Vital Signs Temperature 98.1 F 11/11/24 19:50 Temperature Source Temporal Artery Scan 11/11/24 19:50 Pulse Rate 93 11/11/24 19:50 Respiratory Rate 16 11/11/24 19:50 Blood Pressure 109/77 11/11/24 19:50 Blood Pressure Mean 87 11/11/24 19:50 Blood Pressure Position Sitting 11/11/24 19:50 Pulse Oximetry 100 11/11/24 19:50 Oxygen Delivery Method Room Air 11/11/24 19:50 Vital Signs Temperature 98.1 F 11/11/24 19:50 Pulse Rate 93 11/11/24 19:50 Respiratory Rate 16 11/11/24 19:50 Blood Pressure 109/77 11/11/24 19:50 Pulse Oximetry 100 11/11/24 19:50 Oxygen Delivery Method Room Air 11/11/24 19:50 Temperature 98.1 F 11/11/24 19:50 Pulse Rate 86 11/11/24 21:00 Respiratory Rate 16 11/11/24 21:00 Blood Pressure 117/81 11/11/24 21:00 Pulse Oximetry 98 11/11/24 21:00 Oxygen Delivery Method Room Air 11/11/24 21:00 Medications Administered Medications: Discontinued Medications Generic Name Dose Route Start Last Admin Trade Name Freq PRN Reason Stop Dose Admin Diphtheria/Tetanus/Acell Pertussis 0.5 ml 11/11/24 20:30 11/11/24 21:20 Tetanus/Diphth/Pertussis 0.5 Ml Syringe IM 11/11/24 20:31 0.5 ml .ONCE ONE Administration Metronidazole 500 mg in 100 mls @ 100 mls/hr 11/11/24 20:30 11/11/24 21:28 Metronidazole IVPB 11/11/24 21:29 Infused ONCE ONE Infusion MDM - Animal Bite Lab Data Attestation: I reviewed the patient's lab results. Labs: Lab Results 11/11/24 Range/Units 20:18 WBC 9.55 (4.50-11.00) K/uL RBC 4.42 (4.00-5.20) m/uL Hgb 12.7 (12.0-16.0) gm/dL Hct 37.9 (33.0-51.0) % MCV 86 (80-100) fL MCH 29 (26-34) pg MCHC 34 (32-36) gm/dL RDW Coeff of Jacquelin 11.9 (11.5-15.5) % Plt Count 287 (140-440) K/uL Neut % (Auto) 73.5 H (42.0-72.0) % Lymph % (Auto) 16.2 L (20-44) % [place] % (Auto) 7.9 (0.0-11.0) % Eos % (Auto) 2.0 (0.0-7.0) % Baso % (Auto) 0.3 (0.0-3.0) % Neut # (Auto) 7.00 (1.7-7.0) K/uL Lymph # (Auto) 1.50 (0.90-2.90) K/uL [place] # (Auto) 0.80 (0.00-0.90) K/UL Eos # (Auto) 0.19 (0.00-0.50) K/uL Baso # (Auto) 0.03 (0.00-0.30) K/uL Abs Immat Gran (auto) 0.01 (0.00-0.30) K/uL Imm/Tot Granulo (auto) 0.1 % Sodium 139 (135-149) mmol/L Potassium 3.9 (3.6-5.1) mmol/L Chloride 103 (96-114) mmol/L Carbon Dioxide 26 (20-32) mmol/L Anion Gap 10 (7-15) mEq/L BUN 18 (5-24) mg/dL Creatinine 0.6 (0.5-1.5) mg/dL Estimated Creat Clear 95.62 Estimated GFR 114 ml/min Glucose 89 (60-115) mg/dL Calcium 9.9 (8.4-10.6) mg/dL C-Reactive Protein < 0.5 L (0.5-1.0) mg/dL Discharge Plan Discharge Clinical Impression: Infected dog bite of hand including fingers Qualifiers: Encounter type: initial encounter Laterality: right Qualified Code(s): S61.451A - Open bite of right hand, initial encounter Patient Disposition: Admitted As Observation
[2024-11-11 20:28] LABS: Hematocrit 37.9 % (33.0-51.0); Hemoglobin* 12.7 gm/dL (12.0-16.0); Immature Granulocytes Abs Auto 0.01 K/uL (0.00-0.30); Immature Granulocytes Pct Auto 0.1 %; Mean Corpuscular HGB Conc 34 gm/dL (32-36); Mean Corpuscular Hemoglobin 29 pg (26-34); Mean Corpuscular Volume 86 fL (80-100); RDW Coefficient of Variation % 11.9 % (11.5-15.5); Red Blood Count 4.42 m/uL (4.00-5.20); White Blood Count* 9.55 K/uL (4.50-11.00)
[2024-11-11 20:34] LABS: Lymphocytes Absolute Auto 1.50 K/uL (0.90-2.90); Slide Review Reflex No
[2024-11-11] MEDS: metroNIDAZOLE 500 MG/100 ML PIGGYBACK 100 MG IVPB (20:50)
[2024-11-11 20:53] LABS: Chloride* 103 mmol/L (96-114); Potassium* 3.9 mmol/L (3.6-5.1); Sodium* 139 mmol/L (135-149)
[2024-11-11 20:56] LABS: Anion Gap 10 mEq/L (7-15); Blood Urea Nitrogen* 18 mg/dL (5-24); Calcium* 9.9 mg/dL (8.4-10.6); Carbon Dioxide* 26 mmol/L (20-32); Creatinine* 0.6 mg/dL (0.5-1.5); Est. Creatinine Clearance* 95.62; Estimated Glomerular Filt Rate 114 ml/min; Glucose* 89 mg/dL (60-115)
[2024-11-11 21:00] VITALS: BP 117/81; PULSE 86; RESP 16; O2SAT 98
[2024-11-11] MEDS: TETANUS/DIPHTH/PERTUSSIS 0.5 ML SYRINGE IM (21:20)
[2024-11-11 21:31] VITALS: BP 118/79; PULSE 97; RESP 18; TEMP 37; O2SAT 99
--- NOTE | 2024-11-11 21:44 | P.IMHP_ITS ---
Assessment and Plan Assessment and plan (1) Infected dog bite of hand including fingers: Problem comment: Marked swelling of the right hand started very early after dog bite today. Admit for IV antibiotic and monitoring. Consult Orthopedics if getting worse. Treat with metronidazole and Bactrim. If getting worse consider testing for penicillin reaction with a dose of amoxicillin followed by treatment with Unasyn. Dog was vaccinated for rabies. Patient vaccinated for tetanus Status: Acute Total Time Spent Total Time Spent: 60 minutes Hospitalist- H&P: HPI History of Present Illness Time Seen by Provider: 09:00 Date Seen: 11/11/24 Chief complaint: Multiple dog bites, Body Aches Narrative: Geri Napier is a 44 year old female bitten by 1 of her own dogs at about 10:00 a.m. today now presenting with marked swelling over the right hand for she had the bite. 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 She was taking the dog to a rescue assisted because she did not want to breathe that dog with its behavior problems. As she went to pick it up it bit her in the right hand and in both ankles. It did not break the skin in the ankles. It bit her over the 2nd MCP of the right hand. She is right handed. Over the next few hours she noted marked swelling and stiffness in the 2nd finger on her right hand. She has not had a fever. She has a history of obesity with fatty liver and cirrhosis, PCOS and glucose intolerance. She has been on semaglutide and now terzepitide with 75 lbs weight loss in the past 2+ years. 83 kg in April 2022. 56 kg today. She has an allergy to penicillin. She tells me that she has had a rash from that. She describes a skin breakdown in the flexor creases and on her scalp when she takes penicillin. This last happened several years ago. She tells me that she breaks out in a rash on her skin of her hands when she handles penicillin to give to her dogs. She also said that she got a rash on her breast when her baby was nursing when the baby was taking penicillin. Review of Systems Narrative: She reports feeling fine other than pain and swelling in her right hand Medical Decision Making Medical Decision Making Has patient completed a Health Care Directive: No PFSH PFS Medical History (Updated 11/11/24 @ 22:00 by Kiet Barakat MD) Gastroesophageal reflux disease (12/26/09) ?K21.9 - Gastro-esophageal reflux disease without esophagitis (ICD-10) Attention or concentration deficit ?R41.840 - Attention and concentration deficit (ICD-10) Hyperlipidemia ?E78.5 - Hyperlipidemia, unspecified (ICD-10) Non-alcoholic fatty liver disease ?K76.0 - Fatty (change of) liver, not elsewhere classified (ICD-10) Anxiety ?F41.9 - Anxiety disorder, unspecified (ICD-10) Class 1 obesity (12/15/12) ?E66.9 - Obesity, unspecified (ICD-10) Insulin resistance syndrome ?E88.81 - Metabolic syndrome (ICD-10) PCOS (polycystic ovarian syndrome) ?E28.2 - Polycystic ovarian syndrome (ICD-10) Liver mass (12/16/12) ?R16.0 - Hepatomegaly, not elsewhere classified (ICD-10) Ingrown nail of great toe of right foot ?L60.0 - Ingrowing nail (ICD-10) Gestational diabetes mellitus (GDM) (12/15/12) ?O24.419 - Gestational diabetes mellitus in , unspecified control (ICD-10) Anemia following surgery ?D64.9 - Anemia, unspecified (ICD-10) Pharyngitis ?J02.9 - Acute pharyngitis, unspecified (ICD-10) Urinary tract infection ?N39.0 - Urinary tract infection, site not specified (ICD-10) Surgical History (Updated 11/11/24 @ 21:51 by Kiet Barakat MD) History of tonsillectomy and adenoidectomy ?Z90.89 - Acquired absence of other organs (ICD-10) History of surgery ?Z98.890 - Other specified postprocedural states (ICD-10) History of section (05/13/11) ?Z98.891 - History of uterine scar from previous surgery (ICD-10) History of breast augmentation ?Z98.82 - Breast implant status (ICD-10) History of total abdominal hysterectomy and bilateral salpingo-oophorectomy ?Z90.710 - Acquired absence of both cervix and uterus (ICD-10) ?Z90.722 - Acquired absence of ovaries, bilateral (ICD-10) ?Z90.79 - Acquired absence of other genital organ(s) (ICD-10) Family History (Updated 11/11/24 @ 21:52 by Kiet Barakat MD) Mother Hypothyroidism High blood pressure Maternal Grandmother Hypothyroidism Father Throat cancer Social History (Updated 11/11/24 @ 21:53 by Kiet Barakat MD) Narrative: She lives with her and son in [place]. 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 Code status is full Non-smoker Does not drink alcohol Does not use illicit drugs Smoking Status: Never smoker Non-prescribed substance use: denies use Meds Home Medications and Allergies Home Medications ?Medication ?Instructions ?Recorded ?Confirmed ?Type semaglutide (weight loss) 2.4 2.4 mg (0.75 mL) subcut QWEEK #3 mL 03/21/24 03/28/24 Rx mg/0.75 mL subcutaneous pen injector (Wegovy) methylprednisolone 4 mg tablets in See Rx Instructions PO PER PKG DIR 03/28/24 03/28/24 Rx a dose pack (Medrol (Jeff)) #21 ea estradiol 1 mg tablet 1 mg PO DAILY #90 tabs 11/02 Rx escitalopram oxalate 20 mg tablet 20 mg PO QDAY #90 ta bs 11/10/24 Rx Allergies Allergy/AdvReac Type Severity Reaction Status Date / Time hydrocodone Allergy Severe Hives Verified 03/28/24 13:33 Penicillins Allergy Verified 03/28/24 13:33 Exam Narrative: Exam Narrative: She is alert and appears in no distress. She gives her own history. Eyes normal. Oropharynx normal. Neck is supple without mass or adenopathy. Respirations are clear to auscultation. Cardiovascular: S1, S2, regular rate and rhythm. Abdomen: Bowel sounds active. Abdomen is soft without tenderness or mass. Left upper extremity is normal with intact pulses and sensation and motion. Question of a tiny superficial hand abrasion from a dog bite without evidence of infection. Right upper extremity is normal except for a markedly swollen index finger, mildly swollen middle finger and mildly swollen hand over the distal 2nd and 3rd metacarpals. Diminished flexion especially in the 2nd finger. Normal extension. Minimal erythema. Intact sensation and capillary refill. Both ankles have superficial abrasions that she reports were also from the same dog attack. No sign of infection. It does not appear the skin was broken though there is some bruising. Const: Vital Signs, click to edit/add: Vital Signs - 24 hr 11/11/24 19:50 11/11/24 21:00 Temperature 98.1 F Pulse Rate [Pulse Oximeter] 93 86 Respiratory Rate 16 16 Blood Pressure [Le ft Upper Arm] 109/77 117/81 Pulse Oximetry 100 98 Oxygen Delivery Me thod Room Air Room Air Documenting provider has reviewed patient's vital signs: yes Hospitalist - H&P: Result Labs Labs: Short CBC 11/11/24 Range/Units 20:18 WBC 9.55 (4.50-11.00) K/uL Hgb 12.7 (12.0-16.0) gm/dL Hct 37.9 (33.0-51.0) % Plt Count 287 (140-440) K/uL BMP 11/11/24 20:18 Sodium 139 Potassium 3.9 Chloride 103 Carbon Dioxide 26 BUN 18 Creatinine 0.6 Glucose 89 Calcium 9.9
[2024-11-11] MEDS: DOXYCYCLINE HYCLATE 100 MG in 0.9 % SODIUM CHLORIDE Mini-bag 100 ML IVPB (22:19)
[2024-11-11] MEDS: ESCITALOPRAM 10 MG TABLET 20 MG PO (22:20)
[2024-11-11] MEDS: SULFA/TRIMETHOPRIM 800/160 1 TAB PO (22:20)
[2024-11-11 23:00] VITALS: BP 107/65; PULSE 92; RESP 18; TEMP 36.6; O2SAT 98
[2024-11-11] MEDS: IBUPROFEN 400 MG TABLET PO (23:50)
[2024-11-12 03:00] VITALS: BP 100/67; PULSE 91; RESP 16; TEMP 36.6; O2SAT 97
[2024-11-12] MEDS: metroNIDAZOLE 500 MG/100 ML PIGGYBACK 100 MG IVPB (04:24)
[2024-11-12] MEDS: ACETAMINOPHEN 325 MG TABLET 650 MG PO (04:24)
--- NOTE | 2024-11-12 06:55 | PC.NURSE ---
258: Pt arrived to the floor at 213. Pleasant, alert, and oriented.?VSS.?Pain rated 6/10, prn Motrin given. Right hand redness and swelling outlined. Small open area around index finger and thumb. Left hand and bilateral ankles have minor abrasions as well. Ice pack to right hand as tolerated. Pt did have one episode of anxiety; staff utilized therapeutic communication and suggested various relaxation techniques. Pt stated improvement. Pt up independently, tolerated well. Pt in bed, appears to be resting, call light within reach.?
[2024-11-12 07:40] VITALS: BP 98/61; PULSE 89; RESP 16; TEMP 36.8; O2SAT 98
--- NOTE | 2024-11-12 08:26 | P.DS_ITS ---
DS: Providers Provider Date Seen: 11/12/24 Date of admission: 11/11/24 21:32 Primary care physician: Mario Hawkins PA-C Admitting Clinician: Kiet Barakat MD Attending Physician on discharge: Felisha Alva MD Date of Discharge: 11/12/24 DS: Diagnosis Discharge Diagnosis (1) Infected dog bite of hand including fingers: Status: Acute Problem details: Marked swelling of the right hand started very early after dog bite today. Admit for IV antibiotic and monitoring. Consult Orthopedics if getting worse. Treat with metronidazole and Bactrim. If getting worse consider testing for penicillin reaction with a dose of amoxicillin followed by treatment with Unasyn. Dog was vaccinated for rabies. Patient vaccinated for tetanus DS: Summary Time Spent with Patient Time attestation: Total time spent providing and/or coordinating discharge services: Exam Const: Vital Signs, click to edit/add: Vital Signs - 24 hr 11/11/24 19:50 11/11/24 21:00 11/11/24 21:31 Temperature 98.1 F 98.6 F Pulse Rate [Pulse Oximeter] 93 86 97 Respiratory Rate 16 16 18 Blood Pressure [Le ft Arm] 118/79 Blood Pressure [Le ft Upper Arm] 109/77 117/81 Pulse Oximetry 100 98 99 Oxygen Delivery Me thod Room Air Room Air Room Air 11/11/24 21:31 11/11/24 23:00 11/11/24 23:00 Temperature 97.9 F Pulse Rate [Pulse Oximeter] 92 92 Respiratory Rate 18 18 18 Blood Pressure [Le ft Arm] 107/65 Blood Pressure [Le ft Upper Arm] Pulse Oximetry 99 98 Oxygen Delivery Me thod Room Air Room Air 11/12/24 03:00 Temperature 97.9 F Pulse Rate [Pulse Oximeter] 91 Respiratory Rate 16 Blood Pressure [Le ft Arm] 100/67 Blood Pressure [Le ft Upper Arm] Pulse Oximetry 97 Oxygen Delivery Me thod Room Air DS: Data Data Completed and Pending Labs on day of discharge: Labs from last 24 hours 11/11/24 20:18 WBC 9.55 RBC 4.42 Hgb 12.7 Hct 37.9 MCV 86 MCH 29 MCHC 34 RDW Coeff of Jacquelin 11.9 Plt Count 287 Neut % (Auto) 73.5 H Lymph % (Auto) 16.2 L [place] % (Auto) 7.9 Eos % (Auto) 2.0 Baso % (Auto) 0.3 Neut # (Auto) 7.00 Lymph # (Auto) 1.50 [place] # (Auto) 0.80 Eos # (Auto) 0.19 Baso # (Auto) 0.03 Abs Immat Gran (auto) 0.01 Imm/Tot Granulo (auto) 0.1 Sodium 139 Potassium 3.9 Chloride 103 Carbon Dioxide 26 Anion Gap 10 BUN 18 Creatinine 0.6 Estimated Creat Clear 95.62 Estimated GFR 114 Glucose 89 Calcium 9.9 C-Reactive Protein < 0.5 L Discharge Plan Discharge Disposition: Home, Self-Care Date of Admission: 11/11/24 21:32 Attending Provider on Discharge: Felisha Alva Primary Care Provider: Mario Hawkins Condition: Improved Anticipated Discharge Date/Time: 11/12/24 08:18 Discharge Medications: New sulfamethoxazole-trimethoprim 800-160 mg Tablet 1 tab PO BID 9 Days Qty: 18 0RF metronidazole 500 mg tablet 500 mg PO Q8H 9 Days Qty: 27 0RF Continued Wegovy 2.4 mg/0.75 mL pen injector 2.4 mg subcut QWEEK Qty: 3 5RF estradiol 1 mg tablet 1 mg PO DAILY Qty: 90 0RF escitalopram oxalate 20 mg tablet 20 mg PO QDAY Qty: 90 0RF Discharge Orders: Discharge Order (Routine); Ordered 11/12/24 Ordered By: Felisha Alva Additional Instructions: Antibiotics as directed (take with a little food to minimize nausea). Use compression, elevation for comfort/swelling. You need to be seen again urgently with any worsening pain, decreased range of motion, streaking redness, or fever. Activity Level: Activity as Tolerated Discharge Diet: Regular Follow Up Appointments: Mario Hawkins, MARYANNE [Primary Care Provider, Family Practice] [facility] Instructions
[2024-11-12] MEDS: SODIUM CHLORIDE 0.9 % (FLUSH) 10 ML SYRINGE 5 ML IVF ×2 (09:33→21:31)
[2024-11-12] MEDS: SULFA/TRIMETHOPRIM 800/160 1 TAB PO ×2 (09:33→21:30)
--- NOTE | 2024-11-12 09:54 | PM.ORCN ---
History of Present Illness HPI Time Seen by Provider: 09:35 Date Seen: 11/12/24 Consult date: 11/12/24 Requesting physician: Felisha Alva Chief complaint: Multiple dog bites, Body Aches Narrative: Geri is a pleasant 44 year-old that presented to our ED yesterday with concerns of right hand/index finger swelling and erythema after a dog bite that occurred on 11/11/24 at 10am. The puncture wounds are over both the dorsal and volar surface of the proximal phalanx of the right index finger. This morning, Geri's erythema has subsided. Swelling remains minimally improved. No fever/chills, numbness/tingling distally. She does c/o exquisite tenderness to palpation along the flexor and extensor tendon of the 2nd and 3rd digits from the level of the DIP to the MCP joints. Patient is currently on IV Flagyl and oral Bactrim due to penicillin allergy. [facility] Medical History (Updated 11/12/24 @ 10:15 by Julia Metz PA-C) Gastroesophageal reflux disease (12/26/09) ?K21.9 - Gastro-esophageal reflux disease without esophagitis (ICD-10) Attention or concentration deficit ?R41.840 - Attention and concentration deficit (ICD-10) Hyperlipidemia ?E78.5 - Hyperlipidemia, unspecified (ICD-10) Non-alcoholic fatty liver disease ?K76.0 - Fatty (change of) liver, not elsewhere classified (ICD-10) Anxiety ?F41.9 - Anxiety disorder, unspecified (ICD-10) Class 1 obesity (12/15/12) ?E66.9 - Obesity, unspecified (ICD-10) Insulin resistance syndrome ?E88.81 - Metabolic syndrome (ICD-10) PCOS (polycystic ovarian syndrome) ?E28.2 - Polycystic ovarian syndrome (ICD-10) Liver mass (12/16/12) ?R16.0 - Hepatomegaly, not elsewhere classified (ICD-10) Ingrown nail of great toe of right foot ?L60.0 - Ingrowing nail (ICD-10) Gestational diabetes mellitus (GDM) (12/15/12) ?O24.419 - Gestational diabetes mellitus in , unspecified control (ICD-10) Anemia following surgery ?D64.9 - Anemia, unspecified (ICD-10) Pharyngitis ?J02.9 - Acute pharyngitis, unspecified (ICD-10) Urinary tract infection ?N39.0 - Urinary tract infection, site not specified (ICD-10) Surgical History (Updated 11/11/24 @ 21:51 by Kiet Barakat MD) History of tonsillectomy and adenoidectomy ?Z90.89 - Acquired absence of other organs (ICD-10) History of surgery ?Z98.890 - Other specified postprocedural states (ICD-10) History of section (05/13/11) ?Z98.891 - History of uterine scar from previous surgery (ICD-10) History of breast augmentation ?Z98.82 - Breast implant status (ICD-10) History of total abdominal hysterectomy and bilateral salpingo-oophorectomy ?Z90.710 - Acquired absence of both cervix and uterus (ICD-10) ?Z90.722 - Acquired absence of ovaries, bilateral (ICD-10) ?Z90.79 - Acquired absence of other genital organ(s) (ICD-10) Family History (Updated 11/11/24 @ 21:52 by Kiet Barakat MD) Mother Hypothyroidism High blood pressure Maternal Grandmother Hypothyroidism Father Throat cancer Social History (Updated 11/11/24 @ 21:53 by Kiet Barakat MD) Narrative: She lives with her and son in [place]. 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 Code status is full Non-smoker Does not drink alcohol Does not use illicit drugs What is your current living situation?: I presently have a place to live Problems where you live: no known problems Problems where you live details: na In the past 12 months, utilities in danger of being shut off: no In past 12 months, lack of transportation kept you from medical appts, meetings, work, or getting things needed for daily living: no In the past 12 mos, have been you worried that your food would run out before you had money to buy more?: never true In the past 12 mos, the food you bought just didn't last and you didn't have money to buy more?: never true Highest level of school completed/degree received: Associate degree: occupational, technical, vocational program Smoking Status: Never smoker Non-prescribed substance use: denies use Caffeine: Yes How often does anyone, including family, friends and others, physically hurt you: never How often does anyone, including family, friends and others, insult or talk down to you: never How often does anyone, including family, friends and others, threaten you with harm: never How often does anyone, including family, friends and others, scream or curse at you: never service: No Meds Home Medications and Allergies Home Medications ?Medication ?Instructions ?Recorded ?Confirmed ?Type semaglutide (weight loss) 2.4 2.4 mg (0.75 mL) subcut QWEEK #3 mL 03/21/24 03/28/24 Rx mg/0.75 mL subcutaneous pen injector (Wegovy) estradiol 1 mg tablet 1 mg PO DAILY #90 tabs 11/02/24 11/12/24 Rx escitalopram oxalate 20 mg tablet 20 mg PO QDAY #90 tabs 11/10/24 11/12/24 Rx metronidazole 500 mg tablet 500 mg PO Q8H 9 days #27 tabs 11/12/24 Rx sulfamethoxazole 800 1 tab PO BID 9 days #18 tabs 11/12/24 Rx mg-trimethoprim 160 mg tablet Allergies Allergy/AdvReac Type Severity Reaction Status Date / Time hydrocodone Allergy Severe Hives Verified 03/28/24 13:33 Penicillins Allergy Verified 03/28/24 13:33 Ortho Exam Narrative Exam Narrative: Patient is alert and oriented x3. No acute distress. Converses with nonlabored breathing. Right hand/right index finger: Diffuse swelling present over right 2nd and 3rd index fingers extending into the dorsal aspect of the hand. Erythema has improved and not extended beyond the purple marker line. Outlined area is slightly warm to the touch, but certainly not red and hot to the touch. Exquisite tenderness to palpation near puncture sites extending just proximal to the index finger MCP joint. The 3rd digit is also tender to palpation from the dorsal and volar aspect of the proximal phalanx to the 3rd MCP joint. Slight flexed posturing of the right index finger, but patient denies pain with passive flexion of this joint. Able to make fist with the exception of the index finger fails to make contact with palmar surface. Geri reports tightness/pain with flexion. CMS intact with 2+ radial pulse. Sensation intact distally. [place], warm digits with brisk capillary refill. Const Vital Signs, click to edit/add: Vital Signs - 24 hr 11/11/24 19:50 11/11/24 21:00 11/11/24 21:31 Temperature 98.1 F 98.6 F Pulse Rate [Pulse Oximeter] 93 86 97 Respiratory Rate 16 16 18 Blood Pressure [Left Arm] 118/79 Blood Pressure [Left Upper Arm] 109/77 117/81 Pulse Oximetry 100 98 99 Oxygen Delivery Method Room Air Room Air Room Air 11/11/24 21:31 11/11/24 23:00 11/11/24 23:00 Temperature 97.9 F Pulse Rate [Pulse Oximeter] 92 92 Respiratory Rate 18 18 18 Blood Pressure [Left Arm] 107/65 Blood Pressure [Left Upper Arm] Pulse Oximetry 99 98 Oxygen Delivery Method Room Air Room Air 11/12/24 03:00 11/12/24 07:40 11/12/24 07:40 Temperature 97.9 F 98.3 F Pulse Rate [Pulse Oximeter] 91 89 89 Respiratory Rate 16 16 Blood Pressure [Left Arm] 100/67 98/61 Blood Pressure [Left Upper Arm] Pulse Oximetry 97 98 Oxygen Delivery Method Room Air Room Air Results Labs Labs: Laboratory Results - last 48 hr 11/11/24 20:18 WBC 9.55 RBC 4.42 Hgb 12.7 Hct 37.9 MCV 86 MCH 29 MCHC 34 RDW Coeff of Jacquelin 11.9 Plt Count 287 Neut % (Auto) 73.5 H Lymph % (Auto) 16.2 L [place] % (Auto) 7.9 Eos % (Auto) 2.0 Baso % (Auto) 0.3 Neut # (Auto) 7.00 Lymph # (Auto) 1.50 [place] # (Auto) 0.80 Eos # (Auto) 0.19 Baso # (Auto) 0.03 Abs Immat Gran (auto) 0.01 Imm/Tot Granulo (auto) 0.1 Sodium 139 Potassium 3.9 Chloride 103 Carbon Dioxide 26 Anion Gap 10 BUN 18 Creatinine 0.6 Estimated Creat Clear 95.62 Estimated GFR 114 Glucose 89 Calcium 9.9 C-Reactive Protein < 0.5 L Assessment and Plan Assessment and plan (1) Infected dog bite of hand including fingers: Status: Acute Assessment and Plan: Geri's dog bite wound certainly has localized cellulitis present that has improved overnight with Flagyl and Bactrim. She does not have the classic pain with passive extension of this digit that is seen with pyogenic flexor tenosynovitis. Also her pain is extending along the path of her flexor and extensor tendon sheaths, but this is also near the 2 puncture site locations. 3 [place] signs present include: flexed posturing, (+/-) tenderness along tendon sheath and swelling. I recommend an MRI to evaluate for fluid collection along the dorsal and volar tendons of the 2nd and 3rd digits. I also recommend IV clindamycin and oral Bactrim. We will observe how Geri's pain/erythema/swelling improves over the next day with this change of antibiotic. Patient has her [facility]s [facility] service this afternoon, but she is in agreement to stay overnight for continued IV antibiotic therapy. Update: I was notified that this MRI will take place tomorrow morning. Total time spent: Total time spent is greater than 50% in coordination of care (as documented) at patient's floor/unit and/or counseling patient:
[2024-11-12] MEDS: CLINDAMYCIN 600 MG/50 ML-D5W 600 MG/50 ML PIGGYBACK 100 MG IVPB ×2 (11:17→18:52)
[2024-11-12 12:01] VITALS: BP 101/64; PULSE 76; RESP 16; TEMP 36.8; O2SAT 98
[2024-11-12] MEDS: IBUPROFEN 400 MG TABLET PO (13:35)
--- NOTE | 2024-11-12 13:45 | PM.IMPN1 ---
Assessment and Plan Assessment and plan (1) Infected dog bite of hand including fingers: Problem comment: - transition from Flagyl to Clindamycin, continue Bactrim (PCN allergy), probiotics - Ortho following, MRI 714 am Status: Acute Plan - per above Subjective Date Seen: 11/12/24 Interval history: Geri is a 44 yo female who was admitted last night for dog bite cellulitis of the R hand. She was bitten by a vaccinated dog but she was rehoming, presented to ER given location. She has a history of penicillin allergy, was initiated on Flagyl and Bactrim. Seen by Ortho this morning, MRI recommended + transition from Flagyl to Clindamycin. ROM slightly improved, still has discomfort with flexion. Seems to have slight increase in erythema, following closely. Exam Narrative: Exam Narrative: Alert and oriented, nontoxic RRR, no M/R/G LCTA bilaterally without wheezing R hand has two small puncture wounds noted over R index finger, volar/dorsal, proximal to PIP. No purulent drainage. mild ttp, decreased flexion/extension 2/2 discomfort Const: Vital Signs, click to edit/add: Vital Signs - 24 hr 11/11/24 19:50 11/11/24 21:00 11/11/24 21:31 Temperature 98.1 F 98.6 F Pulse Rate [Pulse Oximeter] 93 86 97 Respiratory Rate 16 16 18 Blood Pressure [Le ft Arm] 118/79 Blood Pressure [Le ft Upper Arm] 109/77 117/81 Pulse Oximetry 100 98 99 Oxygen Delivery Me thod Room Air Room Air Room Air 11/11/24 21:31 11/11/24 23:00 11/11/24 23:00 Temperature 97.9 F Pulse Rate [Pulse Oximeter] 92 92 Respiratory Rate 18 18 18 Blood Pressure [Le ft Arm] 107/65 Blood Pressure [Le ft Upper Arm] Pulse Oximetry 99 98 Oxygen Delivery Nd thod Room Air Room Air 11/12/24 03:00 11/12/24 07:40 11/12/24 07:40 Temperature 97.9 F 98.3 F Pulse Rate [Pulse Oximeter] 91 89 89 Respiratory Rate 16 16 Blood Pressure [Le ft Arm] 100/67 98/61 Blood Pressure [Le ft Upper Arm] Pulse Oximetry 97 98 Oxygen Delivery Nd thod Room Air Room Air 11/12/24 12:01 Temperature 98.2 F Pulse Rate [Pulse Oximeter] 76 Respiratory Rate 16 Blood Pressure [Le ft Arm] 101/64 Blood Pressure [Le ft Upper Arm] Pulse Oximetry 98 Oxygen Delivery Me thod Room Air Labs Labs: Laboratory Results - last 24 hr 11/11/24 20:18 WBC 9.55 RBC 4.42 Hgb 12.7 Hct 37.9 MCV 86 MCH 29 MCHC 34 RDW Coeff of Jacquelin 11.9 Plt Count 287 Neut % (Auto) 73.5 H Lymph % (Auto) 16.2 L [place] % (Auto) 7.9 Eos % (Auto) 2.0 Baso % (Auto) 0.3 Neut # (Auto) 7.00 Lymph # (Auto) 1.50 [place] # (Auto) 0.80 Eos # (Auto) 0.19 Baso # (Auto) 0.03 Abs Immat Gran (auto) 0.01 Imm/Tot Granulo (auto) 0.1 Sodium 139 Potassium 3.9 Chloride 103 Carbon Dioxide 26 Anion Gap 10 BUN 18 Creatinine 0.6 Estimated Creat Clear 95.62 Estimated GFR 114 Glucose 89 Calcium 9.9 C-Reactive Protein < 0.5 L
[2024-11-12 17:00] VITALS: BP 94/60; PULSE 97; RESP 16; TEMP 36.8; O2SAT 97
[2024-11-12] MEDS: LACTOBACILLUS ACIDOPHILUS 1 TABLET 1 TAB PO (18:52)
[2024-11-12 19:00] VITALS: BP 92/61; PULSE 72; RESP 16; TEMP 36.6; O2SAT 100
--- NOTE | 2024-11-12 20:01 | PC.NURSE ---
Pt up independently. Right hand swollen, red, outlined with no redness outside of outline. Hand is elevated with active ice on/off per pt request. Pt washed hands and pick of small scab on palm side of right index finger and dujykh-cvyeg-fkizud puss came out. Pt went to nurse station where Dr. Barakat was able to view and then take sample to be cultured. Hedy Dumont, saw pt this morning and ordered MRI with Dr. Alva discussion which will be complete in a.m. of 11/13.
[2024-11-12] MEDS: ESCITALOPRAM 10 MG TABLET 20 MG PO (21:30)
[2024-11-12 23:00] VITALS: BP 105/68; PULSE 79; RESP 16; TEMP 36.6; O2SAT 98
[2024-11-13] VITALS (11 sets, daily range): BP systolic 89–110; BP diastolic 55–78; PULSE 71–103; RESP 15–20; TEMP 36.4–36.9; O2SAT 96–100
[2024-11-13] MEDS: CLINDAMYCIN 600 MG/50 ML-D5W 600 MG/50 ML PIGGYBACK 100 MG IVPB ×3 (02:09→18:10)
--- NOTE | 2024-11-13 05:56 | PC.NURSE ---
End of shift report [id number]: VSS. Afebrile. Denies pain. MRI Questionnaire completed. Pt has been NPO since midnight. Right hand is swollen, warm to touch and the redness is within the outlined area. Pt is elevating the R hand with intermittent ice applied. Pt is ind in room, call light within reach.?
[2024-11-13 06:07] LABS: Hematocrit 33.2 % (33.0-51.0); Hemoglobin* 11.3 gm/dL (12.0-16.0); Mean Corpuscular HGB Conc 34 gm/dL (32-36); Mean Corpuscular Hemoglobin 29 pg (26-34); Mean Corpuscular Volume 86 fL (80-100); RDW Coefficient of Variation % 11.9 % (11.5-15.5); Red Blood Count 3.88 m/uL (4.00-5.20); White Blood Count* 4.37 K/uL (4.50-11.00)
[2024-11-13 06:08] LABS: Immature Granulocytes Abs Auto 0.00 K/uL (0.00-0.30); Immature Granulocytes Pct Auto 0.2 %; Lymphocytes Absolute Auto 1.30 K/uL (0.90-2.90); Slide Review Reflex No
[2024-11-13 06:19] LABS: Chloride* 106 mmol/L (96-114); Potassium* 3.9 mmol/L (3.6-5.1); Sodium* 137 mmol/L (135-149)
[2024-11-13 06:21] LABS: Blood Urea Nitrogen* 12 mg/dL (5-24); Creatinine* 0.8 mg/dL (0.5-1.5); Est. Creatinine Clearance* 71.71; Estimated Glomerular Filt Rate 94 ml/min
[2024-11-13 06:22] LABS: Anion Gap 7 mEq/L (7-15); Calcium* 8.9 mg/dL (8.4-10.6); Carbon Dioxide* 24 mmol/L (20-32); Glucose* 82 mg/dL (60-115)
--- NOTE | 2024-11-13 07:00 | CRLHL7_ITS ---
For Patients: As a result of the Century Cures Act, medical imaging exams and procedure reports are released immediately into your electronic medical record. You may view this report before your referring provider. If you have questions, please contact your health care provider. CLINICAL INDICATION: Dog bite. Swelling. COMPARISON IMAGING STUDIES: No prior per. TECHNICAL: Noncontrast and contrast-enhanced MRI of the right hand. 1.5 opal MRI scanner. Axial, sagittal and coronal T1, PD and STIR images. Axial, sagittal and coronal T1 post rick fat-sat images. 11 mL Dotarem intravenous gadolinium was administered. FINDINGS: OSSEOUS STRUCTURES: Small area of bone marrow edema and enhancement involves the base of the middle phalanx of the 2nd finger of the right hand, likely reactive or degenerative. There is no acute fracture. No confluent effacement of fatty marrow to suggest osteomyelitis. JOINT SPACES: The MCP joints are maintained. No disruption of collateral ligaments or septic arthritis. Interphalangeal joints are maintained. No disruption of the collateral ligaments or septic arthritis. TENDONS: Flexor tendons are intact. No flexor tendon sheath fluid collection. Extensor tendons are intact. No extensor tendon sheath fluid collection. SOFT TISSUES: There is subcutaneous edema like signal involving the hand with some areas of increased subcutaneous enhancement suggesting cellulitis changes. There is no localized subcutaneous fluid collection. No discrete mass. There are a few small ganglia associated with the wrist. IMPRESSION: 1. Subcutaneous signal abnormality which likely reflects a combination of cellulitis and edema. 2. No localized subcutaneous fluid collection. 3. No tendon sheath fluid collection. 4. No septic arthritis or definite osteomyelitis. Dictated by Chemo Pineda MD @ 11/13/2024 9:35:05 AM (Electronically Signed)
[2024-11-13] MEDS: LACTOBACILLUS ACIDOPHILUS 1 TABLET 1 TAB PO ×2 (07:47→17:05)
[2024-11-13] MEDS: SODIUM CHLORIDE 0.9 % (FLUSH) 10 ML SYRINGE 5 ML IVF ×2 (09:44→21:22)
[2024-11-13] MEDS: SULFA/TRIMETHOPRIM 800/160 1 TAB PO ×2 (09:44→21:21)
--- NOTE | 2024-11-13 10:06 | P.ORPN_ITS ---
Subjective Subjective Date Seen: 11/13/24 Interval history: No danika fevers or chills or rigors. Did notice some yellowish greenish purulence coming from the small scab on the volar aspect of the index finger after she picked the scab yesterday, reportedly. Ortho Exam Narrative Exam Narrative: Generalized swelling about the right hand particularly of the index finger, long finger and dorsum/volar aspect of the hand radial side. Small scabs are seen in both the volar and dorsal aspect of the index finger proximal phalangeal region. Scabs are intact today. No active drainage. Tender palpation flexor tendon sheath, a generalized fusiform swelling of the index finger more so than long and ring fingers, but the patient is able to actively flex a little bit. Beyond the small amount this is causing significant pain with flexion. Mild erythema seen more so on the volar compared to dorsal aspect. Neurologic intact distally in the radial, ulnar, and median nerve distribution to sensory light touch and motor function. Const Vital Signs, click to edit/add: Vital Signs - 24 hr 11/12/24 12:01 11/12/24 17:00 11/12/24 19:00 Temperature 98.2 F 98.2 F 98 F Pulse Rate [Pulse Oximeter] 76 97 72 Respiratory Rate 16 16 16 Blood Pressure [Left Arm] 101/64 94/60 92/61 Pulse Oximetry 98 97 100 Oxygen Delivery Method Room Air Room Air Room Air 11/12/24 23:00 11/12/24 23:00 11/13/24 02:44 Temperature 97.9 F 98.1 F Pulse Rate [Pulse Oximeter] 79 79 85 Respiratory Rate 16 16 16 Blood Pressure [Left Arm] 105/68 96/59 L Pulse Oximetry 98 98 Oxygen Delivery Method Room Air Room Air 11/13/24 07:30 11/13/24 07:53 Temperature 98.2 F Pulse Rate [Pulse Oximeter] 74 74 Respiratory Rate 18 18 Blood Pressure [Left Arm] 95/57 L Pulse Oximetry 97 Oxygen Delivery Method Room Air Assessment and Plan Assessment and plan (1) Suppurative tenosynovitis of flexor tendon of right hand: Status: Acute Plan I candidly described to the patient today that with the drainage that she witnessed yesterday (purulent yellowish, greenish color) that was also witnessed by the hospitalist is concerning for a deep abscess if not purulence flexor tenosynovitis of this right index finger. Given these findings, I do think surgery to incise and drain the volar index finger deep abscess and possible purulent flexor tenosynovitis is prudent. We discussed the risks, benefits, and alternatives. I do think surgery is indicated. This includes local risks (e.g. Infection, wound healing issues, [aseptic loosening, instability, fracture]) as well as systemic risks (e.g. VTE, [place], stroke). She understands. Therefore, we will plan for surgery later today on 11/13/2024 for an open i ncision and drainage right volar hand deep abscess with possible flexor tenosynovitis debridement. I have coordinated care with the hospitalist team and the anesthesia team. Following surgery, would anticipate likely 1 more night here in the hospital in likely transition to p.o. antibiotics.
[2024-11-13] MEDS: ACETAMINOPHEN 500 MG TABLET 1000 MG PO (12:24)
[2024-11-13] MEDS: MIDAZOLAM HCL 1 MG/ML inj IVP (12:25)
[2024-11-13] MEDS: LACTATED RINGERS 1000 ML 1,000 ML 100 ML IV (12:25)
[2024-11-13] MEDS: SODIUM CHLORIDE 0.9 % (FLUSH) 10 ML SYRINGE IVF (12:26)
--- NOTE | 2024-11-13 12:45 | SUR.PREOP ---
TIME?OUT:?1225 PT/linda bailey RN/zhang ryan MDA?VERIFICATION?OF?SURGICAL?SITE,?PROCEDURE,?AND?CONSENT OBTAINED?PRIOR?TO?INVASIVE?PROCEDURE.
--- NOTE | 2024-11-13 13:44 | P.ANES_ITS ---
Anesthesia Charges Start Date/Time Anesthesia Start Date: 11/13/24 Anesthesia Start Time: 13:07 Stop Date/Time Anesthesia Stop Date: 11/13/24 Anesthesia Stop Time: 14:01 Coding CPT Codes CPT Codes: ANESTH LOWER ARM SURGERY - 07305 ([id number]) P2 - PATIENT W/MILD SYST DISEASE, QK - HAND KISS SETTER 2-4 CNCRNT ANES PROC, QX - HEAD FILTER TANK TENDER HELPER SVC W/ MD MED DIRECTION
--- NOTE | 2024-11-13 13:44 | W.PM.NB ---
Nerve Block Nerve Block Time Seen by Provider: 12:30 Date Seen: 11/13/24 Type of block requested by surgeon for post-operative analgesia: axillary Side: right Time out performed: Yes Verification of patient name: Yes Verification of date of : Yes Site marking: site marked Name of person performing procedure: Piter Continuous monitoring Was continuous monitoring of O2 sat, B/P, color television console monitor, recorded every 15 minutes?: Yes Procedure Checklist: sterile prep, needles and gloves Ultrasound guided. Images saved: Yes Medications given in 5ml increments after negative aspiration: Ropivicaine %: 0.5 mL: 10 Needle gauge: 22 and Lidocaine %: 2 mL: 15 Patient tolerated procedure well: Yes Additional comments: Needle noted adjacent to nerve Block Charges Block Charge (with Pro Fee): Brachial Plexus Use of Ultrasound Machine for Block: Yes- US Guidance/pain block
--- NOTE | 2024-11-13 13:44 | W.ANESCHARGE ---
Anesthesia Charges Start Date/Time Anesthesia Start Date: 11/13/24 Anesthesia Start Time: 13:07 Stop Date/Time Anesthesia Stop Date: 11/13/24 Anesthesia Stop Time: 14:01 Coding CPT Codes CPT Codes: ANESTH LOWER ARM SURGERY - 49914 ([id number]) P2 - PATIENT W/MILD SYST DISEASE, QK - CLOTHING DESIGNER 2-4 CNCRNT ANES PROC, QX - CREEL CLERK SVC W/ MD MED DIRECTION
--- NOTE | 2024-11-13 14:10 | P.ANES_ITS ---
Anesthesia Charges Start Date/Time Anesthesia Start Date: 11/13/24 Anesthesia Start Time: 13:07 Stop Date/Time Anesthesia Stop Date: 11/13/24 Anesthesia Stop Time: 14:01 Coding CPT Codes CPT Codes: ANESTH LOWER ARM SURGERY - 11217 ([id number]) P2 - PATIENT W/MILD SYST DISEASE, QK - PERSONNEL DIRECTOR 2-4 CNCRNT ANES PROC, QX - HOSTLER HELPER SVC W/ MD MED DIRECTION
--- NOTE | 2024-11-13 14:10 | W.ANESCHARGE ---
Anesthesia Charges Start Date/Time Anesthesia Start Date: 11/13/24 Anesthesia Start Time: 13:07 Stop Date/Time Anesthesia Stop Date: 11/13/24 Anesthesia Stop Time: 14:01 Coding CPT Codes CPT Codes: ANESTH LOWER ARM SURGERY - 20621 ([id number]) P2 - PATIENT W/MILD SYST DISEASE, QK - CHANGE HOUSE ATTENDANT 2-4 CNCRNT ANES PROC, QX - RETAIL SUPPORT SPECIALIST SVC W/ MD MED DIRECTION
[2024-11-13] MEDS: LACTATED RINGERS 1000 ML 1,000 ML 75 ML IV (14:16)
--- NOTE | 2024-11-13 14:31 | P.IMPN_ITS ---
Assessment and Plan Assessment and plan (1) Infected dog bite of hand including fingers: Problem comment: - transition from Flagyl to Clindamycin, continue Bactrim (PCN allergy), probiotics - Ortho following, MRI 714 am MRI shows subcutaneous signal abnormality which likely reflects a combination of cellulitis and edema, no localized subcutaneous fluid collection, no tendon sheath fluid collection, no septic arthritis or definite osteomyelitis. Discussed with Dr. Hand, plan for washout later today. Continue clindamycin and Bactrim, probiotics Status: Acute (2) Suppurative tenosynovitis of flexor tendon of right hand: Problem comment: To OR for washout 11/13/2024, Dr. Hand Status: Acute Plan OR today. Continue IV antibiotics. Hopeful discharge 11/14/2024 pending ongoing clinical improvement Total Time Spent Total Time Spent: Today I spent 45 minutes seeing the patient, reviewing Expanse and EPIC notes/diagnostics, discussing the care plan with our care time that includes social work, PT/OT, pharmacy, RT, intermediate and documenting my impressions and plan in the medical record. Subjective Date Seen: 11/13/24 Interval history: Patient is seen sitting on the bedside this morning. Reports hand swelling has improved significantly overnight. No pain but just mildly uncomfortable with swelling. Remains afebrile. Purulence drainage reported last evening. Awaiting MRI results. Orthopedic surgery aware. Exam Narrative: Exam Narrative: PHYSICAL EXAM General: Pleasant, conversant, NAD HEENT: Normocephalic, atraumatic, sclera white, EOMI, oral mucosa moist Cardiovascular: RRR, S1S2. No pitting edema Pulmonary: CTA bilaterally without rhonchi, rales, expiratory wheezes. No dyspnea Abdominal: Soft, nondistended, NTTP Neurological: Alert, answering questions appropriately, cranial nerves intact, no focal findings Extremities: Right hand with moderate swelling, erythema contained within outlying, 2 scabs at bite lee noted, dry without active drainage or bleeding. Neurovascularly intact Skin: Warm, dry. Const: Vital Signs, click to edit/add: Vital Signs - 24 hr 11/12/24 17:00 11/12/24 19:00 11/12/24 23:00 Temperature 98.2 F 98 F 97.9 F Pulse Rate Pulse Rate [Pulse Oximeter] 97 72 79 Respiratory Rate 16 16 16 Blood Pressure Blood Pressure [Le ft Arm] 94/60 92/61 105/68 Pulse Oximetry 97 100 98 Oxygen Delivery Me thod Room Air Room Air Room Air Oxygen Flow Rate 11/12/24 23:00 11/13/24 02:44 11/13/24 07:30 Temperature 98.1 F Pulse Rate Pulse Rate [Pulse Oximeter] 79 85 74 Respiratory Rate 16 16 18 Blood Pressure Blood Pressure [Le ft Arm] 96/59 L Pulse Oximetry 98 Oxygen Delivery Me thod Room Air Oxygen Flow Rate 11/13/24 07:53 11/13/24 12:00 11/13/24 12:20 Temperature 98.2 F 97.6 F Pulse Rate 103 H Pulse Rate [Pulse Oximeter] 74 79 Respiratory Rate 18 18 20 Blood Pressure 110/62 Blood Pressure [Le ft Arm] 95/57 L 99/66 Pulse Oximetry 97 99 100 Oxygen Delivery Me thod Room Air Room Air Room Air Oxygen Flow Rate 3 11/13/24 12:25 11/13/24 12:30 11/13/24 14:05 Temperature 98.3 F Pulse Rate 75 71 82 Pulse Rate [Pulse Oximeter] Respiratory Rate 20 20 15 Blood Pressure 109/61 99/57 L 89/63 L Blood Pressure [Le ft Arm] Pulse Oximetry 100 100 96 Oxygen Delivery Me thod Nasal Cannula Room Air Room Air Oxygen Flow Rate 3 Labs Labs: Laboratory Results - last 24 hr 11/13/24 05:45 WBC 4.37 L RBC 3.88 L Hgb 11.3 L Hct 33.2 MCV 86 MCH 29 MCHC 34 RDW Coeff of Jacquelin 11.9 Plt Count 238 Neut % (Auto) 51.1 Lymph % (Auto) 30.4 [place] % (Auto) 11.4 H Eos % (Auto) 6.2 Baso % (Auto) 0.7 Neut # (Auto) 2.20 Lymph # (Auto) 1.30 [place] # (Auto) 0.50 Eos # (Auto) 0.30 Baso # (Auto) 0.00 Abs Immat Gran (auto) 0.00 Imm/Tot Granulo (auto) 0.2 Sodium 137 Potassium 3.9 Chloride 106 Carbon Dioxide 24 Anion Gap 7 BUN 12 Creatinine 0.8 Estimated Creat Clear 71.71 Estimated GFR 94 Glucose 82 Calcium 8.9 C-Reactive Protein
--- NOTE | 2024-11-13 15:29 | PM.ORPRC ---
Procedure Note Date of procedure: 11/13/24 Procedure: PREOPERATIVE DIAGNOSIS: 1. Right hand dog bite with subsequent suspected purulent tenosynovitis of the flexor tendon sheath, index finger 2. Right hand dog bite resulted in deep abscess palmar index finger POSTOPERATIVE DIAGNOSIS: 2. Right hand dog bite resulted in deep abscess palmar index finger PROCEDURE: 1. Right hand open incision and drainage deep abscess palmar aspect index finger base and incision and drainage of flexor tendon sheath. SURGEON: Phil Hand MD. INSURANCE DEFENSE PARALEGAL: Amanda Harp RN FA - Of note, an real estate legal assistant was critical for this case to aid in patient positioning, tissue retraction, limb manipulation/positioning, and closure. ANESTHESIA: Regional block IMPLANTS: None TOURNIQUET: 9 minutes at 225 torr SPECIMEN: Culture right index finger volar aspect COMPLICATIONS: None evident INDICATIONS: The patient is a pleasant 44-year-old female who has experienced a dog bite to the right hand with a double clamped on the volar and dorsal aspect of the index finger near the base of the digit. Initially, she presented [facility] where IV antibiotics were administered. Things did not show significant improvement. She peeled the scab off on the palmar side in noted some purulent drainage yesterday. As such, it was recommended to proceed to the operating room for surgical incision and debridement along with drainage of this right volar index finger suspected deep abscess and possible flexor tenosynovitis. DESCRIPTION OF PROCEDURE: Following a thorough discussion of risks, benefits, and alternatives consent was obtained and the operative extremity was marked. The patient was brought to the operating room and placed supine on the operating table. No antibiotics were administered as she has been on both oral and IV antibiotics while here in the hospital. Proper time-out was performed identifying proper patient, site, and procedure. The operative extremity was prepped and draped in the appropriate sterile fashion using ChloraPrep. The limb was exsanguinated and the tourniquet inflated. An oblique incision was made overlying the volar aspect of the right index finger (Sammy type incision). We extended from the proximal digital crease to the middle digital crease. Sharp incision through the skin, and blunt dissection through subcutaneous tissue allowed us to protect crossing neurologic structures. The flexor tendon and its sheath was encountered. There was some fluid encountered that appeared to be not clearly purulent but rather more serous in the deep portion of the volar digit. This was seemingly in continuity with the flexor tendon sheath. We did culture this sample. We then debride the tissue sharply with a rongeur. A [place] elevator was utilized within the flexor tendon sheath. Thorough irrigation normal saline or (2 L) was then performed of this right index finger. We also tried to milk the hand from proximal towards distal as well as ulnar towards radial. No other purulence was encountered. At this stage, the tourniquet was deflated and hemostasis achieved. Closure was performed with 4-O nylon. Soft dressings were applied, and the patient was awoken/transferred to the recovery room in stable condition. PLAN: 1. Encourage elevation of the operative extremity. 2. Range of motion of the operative extremity/digits as tolerated. 3. Ibuprofen, acetaminophen and/or oxycodone as needed for pain. 4. Follow up with PA visit in 12-16 days for wound check and suture removal.
[2024-11-13] MEDS: IBUPROFEN 400 MG TABLET PO ×2 (17:05→22:36)
[2024-11-13] MEDS: ACETAMINOPHEN 325 MG TABLET 650 MG PO (18:09)
--- NOTE | 2024-11-13 19:05 | PC.NURSE ---
End of shift: Pt has been A&O, afebrile and VSS throughout the day. Her BP's have been soft but she's been asymptomatic. Pt had a right hand I&D today; hand is covered with gauze & CARISSA bandage. Color is pink, skin is warm to the touch & edematous. She had an axillary nerve block done prior to surgery which has now worn off. Pt c/o pain at 6-7/10 utilizing PRN Tylenol & Ibuprofen. Pt declines any stronger pain medication to be ordered. She's been elevating & icing her right arm to help with inflammation. She's independent in her room with a steady gait; she was only dizzy once after returning from surgery and has been feeling normal since. She's voiding & no BM today. Tolerating regular diet without nausea. PIV in left AC SL with scheduled IV Clindamycin.
[2024-11-13] MEDS: ESCITALOPRAM 10 MG TABLET 20 MG PO (21:21)
[2024-11-14] MEDS: CLINDAMYCIN 600 MG/50 ML-D5W 600 MG/50 ML PIGGYBACK 100 MG IVPB (02:37)
[2024-11-14] MEDS: ACETAMINOPHEN 325 MG TABLET 650 MG PO (02:42)
[2024-11-14 03:00] VITALS: BP 89/57; PULSE 77; RESP 16; TEMP 36.4; O2SAT 98
--- NOTE | 2024-11-14 05:31 | PC.NURSE ---
[id number] Pt slept well during night, pain managed with tylenol/ibuprofen. rating pain 3-4/10 describes it as burning primarily in the pinky area. dressing and wrap C/D/I. R hand warm with cap refills < 3 sec, sensation to R hand back to baseline.
[2024-11-14] MEDS: IBUPROFEN 400 MG TABLET PO (06:28)
[2024-11-14 07:00] VITALS: BP 93/56; PULSE 77; RESP 18; TEMP 36.6; O2SAT 98
[2024-11-14] MEDS: LACTOBACILLUS ACIDOPHILUS 1 TABLET 1 TAB PO (08:10)
[2024-11-14] MEDS: SULFA/TRIMETHOPRIM 800/160 1 TAB PO (08:10)
[2024-11-14] MEDS: SODIUM CHLORIDE 0.9 % (FLUSH) 10 ML SYRINGE 5 ML IVF (08:11)
--- NOTE | 2024-11-14 09:33 | PM.DS1 ---
DS: Providers Provider Date Seen: 11/14/24 Date of admission: 11/12/24 15:45 Primary care physician: Mario Hawkins PA-C Admitting Clinician: Kiet Barakat MD Attending Physician on discharge: Noreen Huber [facility] Date of Discharge: 11/14/24 DS: Diagnosis Discharge Diagnosis (1) Infected dog bite of hand including fingers: Status: Acute Problem details: - transition from Flagyl to Clindamycin, continue Bactrim (PCN allergy), probiotics - Ortho following, MRI 11/13 am MRI shows subcutaneous signal abnormality which likely reflects a combination of cellulitis and edema, no localized subcutaneous fluid collection, no tendon sheath fluid collection, no septic arthritis or definite osteomyelitis. Discussed with Dr. Hand, plan for washout later today, 11/13. Continue clindamycin and Bactrim, probiotics S/p right hand open I and D on 11/13. Discharge to continue clindamycin and Bactrim. Preliminary wound culture showing no growth. Follow-up in outpatient orthopedic clinic end of October. Postop cares per Orthopedic surgery. Tylenol or ibuprofen as needed. Patient declines narcotic pain medication. (2) Suppurative tenosynovitis of flexor tendon of right hand: Status: Acute Problem details: S/p Right hand open incision and drainage deep abscess palmar aspect index finger base and incision and drainage of flexor tendon sheath 11/13/2024, Dr. Hand (3) Status post incision and drainage: Status: Acute Problem details: Right hand open incision and drainage deep abscess palmar aspect index finger base and incision and drainage of flexor tendon sheath (date of surgery 11/13/2024 Dr. Hand) DS: Summary Hospital Course Hospital Course: Admitted with infected wound following dog bite of right hand. Found to have a suppurative tenosynovitis of flexor tendon of right hand based on MRI. Underwent incision and drainage as above. Is discharged complete 10 day course of Bactrim and clindamycin. Outpatient follow-up in orthopedic clinic and of October. Status at Discharge Functional status at discharge: independent ambulation Overall status at discharge: patient is back to baseline Time Spent with Patient Time attestation: Total time spent providing and/or coordinating discharge services: Time spent: Greater than 30 minutes Exam Narrative: Exam Narrative: PHYSICAL EXAM General: Pleasant, conversant, NAD Cardiovascular: RRR Pulmonary: No dyspnea Neurological: Alert, answering questions appropriately Extremities: Right hand with postoperative dressing in place, dry, no drainage. Swelling noted, minimal erythema, no streaking. Neurovascularly intact Skin: Warm, dry. Const: Vital Signs, click to edit/add: Vital Signs - 24 hr 11/13/24 12:00 11/13/24 12:20 11/13/24 12:25 Temperature 97.6 F Pulse Rate 103 H 75 Pulse Rate [Pulse Oximeter] 79 Respiratory Rate 18 20 20 Blood Pressure 110/62 109/61 Blood Pressure [Le ft Arm] 99/66 Blood Pressure [Ri ght Arm] Pulse Oximetry 99 100 100 Oxygen Delivery Me thod Room Air Room Air Nasal Cannula Oxygen Flow Rate 3 3 11/13/24 12:30 11/13/24 14:05 11/13/24 14:37 Temperature 98.3 F Pulse Rate 71 82 Pulse Rate [Pulse Oximeter] Respiratory Rate 20 15 16 Blood Pressure 99/57 L 89/63 L Blood Pressure [Le ft Arm] Blood Pressure [Ri ght Arm] Pulse Oximetry 100 96 Oxygen Delivery Me thod Room Air Room Air Oxygen Flow Rate 11/13/24 14:37 11/13/24 19:00 11/13/24 23:00 Temperature 98.5 F 98.1 F Pulse Rate Pulse Rate [Pulse Oximeter] 80 84 89 Respiratory Rate 16 16 16 Blood Pressure Blood Pressure [Le ft Arm] 96/78 100/55 L 95/65 Blood Pressure [Ri ght Arm] Pulse Oximetry 98 99 98 Oxygen Delivery Nv thod Room Air Room Air Room Air Oxygen Flow Rate 11/14/24 03:00 11/14/24 07:00 Temperature 97.6 F 97.9 F Pulse Rate Pulse Rate [Pulse Oximeter] 77 77 Respiratory Rate 16 18 Blood Pressure Blood Pressure [Le ft Arm] 89/57 L Blood Pressure [Ri ght Arm] 93/56 L Pulse Oximetry 98 98 Oxygen Delivery Me thod Room Air Room Air Oxygen Flow Rate DS: Data Data Completed and Pending Labs on day of discharge: Preliminary micro results at discharge 11/12/24 18:36 Wound Culture - Preliminary Hand Right No growth. Imaging MRI hand: Attestation: I have reviewed the pertinent imaging results. Radiologist's impression: OSSEOUS STRUCTURES: Small area of bone marrow edema and enhancement involves the base of the middle phalanx of the 2nd finger of the right hand, likely reactive or degenerative. There is no acute fracture. No confluent effacement of fatty marrow to suggest osteomyelitis. JOINT SPACES: The MCP joints are maintained. No disruption of collateral ligaments or septic arthritis. Interphalangeal joints are maintained. No disruption of the collateral ligaments or septic arthritis. TENDONS: Flexor tendons are intact. No flexor tendon sheath fluid collection. Extensor tendons are intact. No extensor tendon sheath fluid collection. SOFT TISSUES: There is subcutaneous edema like signal involving the hand with some areas of increased subcutaneous enhancement suggesting cellulitis changes. There is no localized subcutaneous fluid collection. No discrete mass. There are a few small ganglia associated with the wrist. IMPRESSION: 1. Subcutaneous signal abnormality which likely reflects a combination of cellulitis and edema. 2. No localized subcutaneous fluid collection. 3. No tendon sheath fluid collection. 4. No septic arthritis or definite osteomyelitis. Discharge Plan Discharge Disposition: Home, Self-Care Date of Admission: 11/12/24 15:45 Attending Provider on Discharge: Noreen Huber Primary Care Provider: Mario Hawkins Condition: Improved Anticipated Discharge Date/Time: 11/14/24 09:19 Discharge Medications: New sulfamethoxazole-trimethoprim [Bactrim DS] 800-160 mg tablet 1 tab PO BID Qty: 20 0RF clindamycin HCl 300 mg capsule 300 mg PO TID Qty: 30 0RF escitalopram oxalate 10 mg Tablet 10 mg PO HS Qty: 30 0RF Continued tirzepatide 15 mg/0.5 mL pen injector 15 mg subcut Q7D Patient Comments: MONDAYS, USES COMPOUNDED PRODUCT - DRAWS UP 6 UNITS estradiol 1 mg tablet 1 mg PO DAILY Qty: 90 0RF Discontinued escitalopram oxalate 20 mg tablet 10 mg PO DAILY Discharge Orders: Discharge Order (Routine); Ordered 11/14/24 Ordered By: Noreen Huber Patient Education: Sulfamethoxazole/Trimethoprim (By mouth), Clindamycin (By mouth), Animal Bite (DC), Incision and Drainage (DC) Additional Instructions: COMPLETE THE 10 DAY COURSE OF BACTRIM AND CLINDAMYCIN. AVOID DIRECT SUN EXPOSURE. TAKE A PROBIOTIC. Jonathan bandage and dressings off after 3-5 days postop. Don't soak wound. Gentle wash okay. Gently motion of hand and digits okay Activity Level: Activity as Tolerated Discharge Diet: Regular Follow Up Appointments: Mario Hawkins PA-C [Primary Care Provider, Family Practice] - 11/13/24 9:00 am Referral Note: This appointment is with Bernie Strickland, primary was not available. Chetan Buckner PA-C [Physician Brush Trimming Machine Setter, Orthopedics] - 11/28/24 9:20 am Referral Note: [facility] for follow-up. Forms: [employer] Info Instructions
--- NOTE | 2024-11-14 10:41 | PC.NURSE ---
End of shift report [id number]: Pleasant and cooperative with cares, alert and oriented x 4. Pain to right hand well managed with current regimen. Dressing clean, dry and intact. CMS to right hand intact, capillary refill <3 seconds, patient able to move fingers independently, non pitting edema to 4 digits thumb not affected. Denies any nausea or vomiting, denies SOB or chest pain. Discharge paperwork reviewed and patient verbalized understanding.
--- NOTE | 2024-11-14 11:36 | PM.ORPN ---
Subjective Subjective Date Seen: 11/14/24 Principal diagnosis: Postop day 1 right hand open I&D Interval history: Patient reports doing overall well. Reports some stinging/burning in the hand. She had pain at the pinky last night, and elected to unwrap and rewrap the Jonathan bandage which resolved her pain. She is treating her pain adequately with ibuprofen and Tylenol. Pain is primarily over the dorsum of the radial hand, index region. Denies fevers or chills. She is ready to go home. Ortho Exam Narrative Exam Narrative: Right hand: Jonathan and [place] bandaging covers the hand/index finger. She is able to move her digits. Index and long digit are mildly swollen. No excessive warmth, no drainage from the bandaging 2+ radial pulse, pink warm digits with brisk cap refill; intact dermatomes and myotomes distally including the radial, ulnar, and median nerve distributions Const Vital Signs, click to edit/add: Vital Signs - 24 hr 11/13/24 12:00 11/13/24 12:20 11/13/24 12:25 Temperature 97.6 F Pulse Rate 103 H 75 Pulse Rate [Pulse Oximeter] 79 Respiratory Rate 18 20 20 Blood Pressure 110/62 109/61 Blood Pressure [Left Arm] 99/66 Blood Pressure [Right Arm] Pulse Oximetry 99 100 100 Oxygen Delivery Method Room Air Room Air Nasal Cannula Oxygen Flow Rate 3 3 11/13/24 12:30 11/13/24 14:05 11/13/24 14:37 Temperature 98.3 F Pulse Rate 71 82 Pulse Rate [Pulse Oximeter] Respiratory Rate 20 15 16 Blood Pressure 99/57 L 89/63 L Blood Pressure [Left Arm] Blood Pressure [Right Arm] Pulse Oximetry 100 96 Oxygen Delivery Method Room Air Room Air Oxygen Flow Rate 11/13/24 14:37 11/13/24 19:00 11/13/24 23:00 Temperature 98.5 F 98.1 F Pulse Rate Pulse Rate [Pulse Oximeter] 80 84 89 Respiratory Rate 16 16 16 Blood Pressure Blood Pressure [Left Arm] 96/78 100/55 L 95/65 Blood Pressure [Right Arm] Pulse Oximetry 98 99 98 Oxygen Delivery Method Room Air Room Air Room Air Oxygen Flow Rate 11/14/24 03:00 11/14/24 07:00 Temperature 97.6 F 97.9 F Pulse Rate Pulse Rate [Pulse Oximeter] 77 77 Respiratory Rate 16 18 Blood Pressure Blood Pressure [Left Arm] 89/57 L Blood Pressure [Right Arm] 93/56 L Pulse Oximetry 98 98 Oxygen Delivery Method Room Air Room Air Oxygen Flow Rate Assessment and Plan Assessment and plan (1) Infected dog bite of hand including fingers: Problem details: - transition from Flagyl to Clindamycin, continue Bactrim (PCN allergy), probiotics - Ortho following, MRI 714 am MRI shows subcutaneous signal abnormality which likely reflects a combination of cellulitis and edema, no localized subcutaneous fluid collection, no tendon sheath fluid collection, no septic arthritis or definite osteomyelitis. Discussed with Dr. Hand, plan for washout later today. Continue clindamycin and Bactrim, probiotics Status: Acute (2) Suppurative tenosynovitis of flexor tendon of right hand: Problem details: To OR for washout 11/13/2024, Dr. Hand Status: Acute (3) Status post incision and drainage: Problem details: Right hand open incision and drainage deep abscess palmar aspect index finger base and incision and drainage of flexor tendon sheath (date of surgery 11/13/2024 Dr. Hand) Status: Acute Plan - continue oral antibiotics - ibuprofen/Tylenol as needed for pain - removed soft dressings after 3-5 days. If any adhesive dressing is over the wound, keep this on until follow-up. May wash hands as tolerated. No soaking the wounds. - return to clinic or call if there are wound concerns, saturation of the bandaging, increasing swelling, fevers/chills. - Anticipation is for discharge to home with family/friends today 11/14/2024.
== END 2024-11-14 10:35 | disposition home or self-care (01) | DRG 383 ==
LOC: ED 21:04 → MEDSURG 21:32
PROVIDERS: Family Medicine; Orthopaedic Surgery Sports Medicine; Admitting Provider Family Medicine; Emergency Provider Family Medicine; PCP Physician Assistant Medical; Visit Provider Family Medicine
PROC: 0L970ZX Drainage of Right Hand Tendon, Open Approach, Diagnostic (ICD-10-PCS; principal; 2024-11-13 13:00)
DX: L03.113 Cellulitis of right upper limb (principal); S61.451A Open bite of right hand, initial encounter; M65.141 Other infective (teno)synovitis, right hand; L02.511 Cutaneous abscess of right hand; B96.89 Other specified bacterial agents as the cause of diseases classified elsewhere; S61.250A Open bite of right index finger without damage to nail, initial encounter; Y92.009 Unspecified place in unspecified non-institutional (private) residence as the place of occurrence of the external cause; W54.0XXA Bitten by dog, initial encounter; K76.0 Fatty (change of) liver, not elsewhere classified; E28.2 Polycystic ovarian syndrome; K21.9 Gastro-esophageal reflux disease without esophagitis; F41.9 Anxiety disorder, unspecified; E78.5 Hyperlipidemia, unspecified
CPT/HCPCS: 01810; 36415; 64415; 73220; 76942; 80048; 85025; 86140; 87070; 87075; 87205; 90715; 99284; 99285; A9270; G0378; J0736; J1836; J2250; J2795; J7050; J7120

== ENCOUNTER 2024-11-15 09:12 | Outpatient (CLI) | payer BC, SELFPAY | END 2024-11-15 09:13 | disposition home or self-care (01) | LOC: NFLDREF 11-17 02:23 | PROVIDERS: PCP Physician Assistant Medical; Referring Provider Physician Assistant Medical; Visit Provider Physician Assistant Medical | DX: E78.01 Familial hypercholesterolemia (principal); R79.89 Other specified abnormal findings of blood chemistry; K76.0 Fatty (change of) liver, not elsewhere classified; B37.31 Acute candidiasis of vulva and vagina; F41.9 Anxiety disorder, unspecified; E28.2 Polycystic ovarian syndrome; E78.5 Hyperlipidemia, unspecified | CPT/HCPCS: 80053; 80061; 82306; 84443 ==

== ENCOUNTER 2025-03-16 13:09 | Outpatient (CLI) | payer BC, SELFPAY ==
--- NOTE | 2025-03-16 13:40 | CRLHL7_ITS ---
For Patients: As a result of the Century Cures Act, medical imaging exams and procedure reports are released immediately into your electronic medical record. You may view this report before your referring provider. If you have questions, please contact your health care provider. INDICATION: BILATERAL SCREENING MAMMOGRAM W/ IMPLANTS, ASYMPTOMATIC 44 Y/O FEMALE COMPARISON: 09/25/2021 TECHNIQUE: Digital mammogram in CC and MLO projections including computer-aided detection (CAD) and tomosynthesis. BREAST COMPOSITION: There are scattered areas of fibroglandular density. FINDINGS: No suspicious findings. ASSESSMENT: BI-RADS 2 Benign RECOMMENDATION: Annual screening mammogram. A lay language report of this examination will be provided to the patient. Dictated by: Moreno Caro MD @ 03/19/2025 09:13:39 (Electronically Signed)
== END 2025-03-16 13:10 | disposition home or self-care (01) ==
LOC: MAMMO 13:09
PROVIDERS: PCP Physician Assistant Medical; Visit Provider Physician Assistant Medical
DX: Z12.31 Encounter for screening mammogram for malignant neoplasm of breast (principal)
CPT/HCPCS: 77063; 77067